=== PATIENT | female | born 1965 | race Caucasian/White ===

== ENCOUNTER 2016-08-27 20:38 | Emergency (ER) | payer MEDICARE ==
[2016-08-27 20:57] VITALS: BP 139/72
[2016-08-27] MEDS ORDERED: Ciprofloxacin TAB* 500 MG PO ONE (21:20)
--- NOTE | 2016-08-27 21:29 | UC ---
Ear Complaint HPI - HPI Summary HPI Summary: saw her doctor yesterday for a very painful left ear. Dx external otitis, Rx topical drops. She put a few doses in, and today noted gradually worsening pain in ear, swelling of left jaw area and under the jaw. Very tender to touch. No ear drainage. No fever. Hurts a bit to swallow, when the swollen area under the left jaw crump. No sore throat. No diabetes - History of Current Complaint Chief Complaint: UCGeneralIllness Stated Complaint: LEFT NECK,EAR SWOLLEN Time Seen by Provider: 08/27/16 21:08 Hx Obtained From: Patient Onset/Duration: Gradual Onset, Lasting Days - 4 Severity Initially: Mild Severity Currently: Moderate Aggravating Factors: Nothing Alleviating Factors: Heat Associated Signs/Symptoms: Positive: Swelling @ - left jaw, under left jaw. Negative: Discharge, Hearing Loss, Foreign Body Sensation, Trauma to Ear - Allergies/Home Medications Allergies/Adverse Reactions: Allergies Allergy/AdvReac Type Severity Reaction Status Date / Time Codeine Allergy Itching Verified 08/27/16 20:57 Home Medications: Home Medications Iipripmb-Iodrmycpa-By (Otic) [Cortisporin [id number]] 5 drop TID 08/27/16 [ History Confirmed 08/27/16] Omeprazole CAP* [Prilosec CAP* 20 MG] 20 mg PO DAILY 08/27/16 [History Confirmed 08/27/16] Propranolol TAB* [Inderal TAB*] 10 mg PO BID 08/27/16 [History Confirmed ] Tramadol ER(NF) [Ultram ER(NF)] 200 mg PO BEDTIME 08/27/16 [History Confirmed ] PMH/Surg Hx/FS Hx/Imm Hx Endocrine History Of: Denies: Diabetes, Thyroid Disease Cardiovascular History Of: Reports: Hypertension Denies: Pacemaker/ICD, Myocardial Infarction, Congestive Heart Failure, Deep Vein Thrombosis Respiratory History Of: Denies: COPD, Asthma, Pneumonia, Pulmonary Embolism GI/ History Of: Denies: Ulcer, Gastrointestinal Bleed, Gall Bladder Disease, Kidney Stones, Renal Disease, Urosepsis Neurological History Of: Denies: TIA, Dementia, Seizures, Migraine Psychological History Of: Denies: Anxiety, Depression, Bipolar Disorder, Schizophrenia Cancer History Of: Denies: Lung Cancer Other History Of: Negative For: Anticoagulant Therapy - Surgical History Surgical History: Yes Surgery Procedure, Year, and Place: TUBAL LIGATION 1991, GALLBLADDER 2004, BREAST REDUCTION 2000, 1997 [facility] - Family History Known Family History: Negative: None, Unknown, Cardiac Disease, Hypertension, Diabetes, Renal Disease, Respiratory Disease, Seizure Disorder, Blood Disorder, Other - Social History Occupation: Employed Full-time Lives: With Family Alcohol Use: Rare Substance Use Type: None Smoking Status (MU): Never Smoked Tobacco - Immunization History Most Recent Influenza Vaccination: none Review of Systems Constitutional: Negative Skin: Negative Eyes: Negative ENT: Ear Ache, Other - pain and swelling of left jaw area Respiratory: Negative Cardiovascular: Negative Gastrointestinal: Negative Genitourinary: Negative Motor: Negative Neurovascular: Negative Musculoskeletal: Negative Neurological: Negative Psychological: Negative All Other Systems Reviewed And Are Negative: Yes Physical Exam Triage Information Reviewed: Yes Appearance: Well-Appearing, No Pain Distress, Well-Nourished Vital Signs: Initial Vital Signs Temp 98.4 F 08/27/16 20:49 Pulse 95 08/27/16 20:49 Resp 17 08/27/16 20:49 BP 139/72 08/27/16 20:49 Pulse Ox 98 08/27/16 20:49 Vital Signs Reviewed: Yes Eye Exam: Normal ENT: Positive: Pharynx normal, Other: - left TM is hard to see due to canal swelling. NO drainage in canal. Very tender to push on tragus or surrounding cartilage. Large left submandib node, tender. No facial redness. I can't really appreciate any swelling of left cheek and jaw, but she says it is noticeable and people at work commented.. Negative: Pharyngeal erythema, Nasal drainage, Tonsillar swelling, Tonsillar exudate, Trismus, Muffled/hoarse voice Ear Complaint Course/Dx - Differential Dx/Diagnosis Differential Diagnosis/HQI/PQRI: Otitis Externa, Otitis Media Provider Diagnoses: left otitis externa; adenitis Discharge - Discharge Plan Condition: Stable Disposition: HOME Prescriptions: Ciprofloxacin HCl [Cipro] 500 mg PO BID #20 tab Patient Education Materials: Otitis Externa (ED), Adenitis (ED) Referrals: Torsten Aguirre MD [Primary Care Provider] -
== END 2016-08-27 21:24 | disposition home or self-care (01) ==
LOC: UCCORT 20:38
DX: H60.92 Unspecified otitis externa, left ear (principal); I88.9 Nonspecific lymphadenitis, unspecified
CPT/HCPCS: 99212; A9270-GY; G0463

== ENCOUNTER 2016-09-09 11:07 | Emergency (ER) | payer MEDICARE ==
[2016-09-09 11:32] VITALS: BP 156/80
--- NOTE | 2016-09-09 11:48 | UC ---
Hand/Wrist HPI - HPI Summary HPI Summary: Patient hit hand on a pipe, no pain, or loss of ROM. a few minutes later she noticed bruising about the middle MCP joint. now large hematoma. ROM limited due to the swelling. no other pain noted. - History Of Current Complaint Chief Complaint: UCUpperExtremity Stated Complaint: HAND INJURY Time Seen by Provider: 09/09/16 11:34 Hx Obtained From: Patient ?: No Onset/Duration: Sudden Onset, Lasting Hours Severity Initially: Mild Severity Currently: Moderate Pain Intensity: 5 Pain Scale Used: 0-10 Numeric Character Of Pain: Aching, Stiffness Aggravating Factor(s): Movement Alleviating: Ice Associated Signs And Symptoms: Positive: Swelling, Bruising - Risk Factors Compartment Syndrome Risk Factors: Pain - Allergies/Home Medications Allergies/Adverse Reactions: Allergies Allergy/AdvReac Type Severity Reaction Status Date / Time Ciprofloxacin Allergy Severe GI Upset Verified 09/09/16 11:24 Codeine Allergy Itching Verified 09/09/16 11:24 PMH/Surg Hx/FS Hx/Imm Hx Previously Healthy: Yes Endocrine History Of: Denies: Diabetes, Thyroid Disease Cardiovascular History Of: Reports: Hypertension Denies: Pacemaker/ICD, Myocardial Infarction, Congestive Heart Failure, Deep Vein Thrombosis Respiratory History Of: Denies: COPD, Asthma, Pneumonia, Pulmonary Embolism GI/ History Of: Denies: Ulcer, Gastrointestinal Bleed, Gall Bladder Disease, Kidney Stones, Renal Disease, Urosepsis Neurological History Of: Denies: TIA, Dementia, Seizures, Migraine Psychological History Of: Denies: Anxiety, Depression, Bipolar Disorder, Schizophrenia Cancer History Of: Denies: Lung Cancer Other History Of: Negative For: Anticoagulant Therapy - Surgical History Surgical History: Yes Surgery Procedure, Year, and Place: TUBAL LIGATION 1991, GALLBLADDER 2004, BREAST REDUCTION 2000, 1997 [place]. Tarsal tunnel - Family History Known Family History: Negative: None, Unknown, Cardiac Disease, Hypertension, Diabetes, Renal Disease, Respiratory Disease, Seizure Disorder, Blood Disorder, Other - Social History Alcohol Use: Rare Substance Use Type: None Smoking Status (MU): Never Smoked Tobacco - Immunization History Most Recent Influenza Vaccination: None Most Recent Tetanus Shot: Unknown Review of Systems Constitutional: Negative Skin: Bruising, Other - selling in left hand Eyes: Negative ENT: Negative Respiratory: Negative Cardiovascular: Negative Gastrointestinal: Negative Genitourinary: Negative Motor: Negative Neurovascular: Negative Musculoskeletal: Negative Neurological: Negative Psychological: Negative All Other Systems Reviewed And Are Negative: Yes Physical Exam Triage Information Reviewed: Yes Appearance: Well-Appearing, Well-Nourished, Pain Distress Vital Signs: Initial Vital Signs Temp 98.9 F 09/09/16 11:26 Pulse 89 09/09/16 11:26 Resp 18 09/09/16 11:26 BP 156/80 09/09/16 11:26 Pulse Ox 99 09/09/16 11:26 Vital Signs Reviewed: Yes Eye Exam: Normal Eyes: Positive: Conjunctiva Clear ENT Exam: Normal ENT: Positive: Hearing grossly normal, Pharynx normal, TMs normal Dental Exam: Normal Neck exam: Normal Neck: Positive: Supple, Nontender, No Lymphadenopathy Respiratory Exam: Normal Respiratory: Positive: Chest non-tender, Lungs clear, Normal breath sounds Cardiovascular Exam: Normal Cardiovascular: Positive: RRR, No Murmur, Pulses Normal Abdominal Exam: Normal Abdomen Description: Positive: Nontender, No Organomegaly, Soft Bowel Sounds: Positive: Present Musculoskeletal: Positive: Strength Limited @, ROM Limited @, Edema @ - in left h and, Other: - full sensation in all fingers, peripheral pulses normal Neurological Exam: Normal Neurological: Positive: Alert, Muscle Tone Normal Psychological Exam: Normal Skin: Positive: Other - large hematoma over left hand Hand/Wrist Course/Dx - Course Course Of Treatment: hx obtained, exam performed, patient does not feel xray needed. in agreement, she had full ROM and no pain until sweeling increased. Francesco and Ice applied, sling provided to keep hand elevated. - Differential Dx/Diagnosis Differential Diagnosis/HQI/PQRI: Contusion, Dislocation, Infection, Sprain, Strain, Tendonitis Provider Diagnoses: hematoma on left hand Discharge - Discharge Plan Condition: Stable Disposition: HOME Patient Education Materials: Hematoma (ED) Additional Instructions: Continue to elevate hand, ice frequently for the next 24- 48 hours. follow up if you develop any numbness or tingling or if your fingers begin to get cold while not icing your hand
== END 2016-09-09 11:55 | disposition home or self-care (01) ==
LOC: UCEAST 11:07
DX: S60.222A Contusion of left hand, initial encounter (principal); W22.8XXA Striking against or struck by other objects, initial encounter; Y93.9 Activity, unspecified; Y92.9 Unspecified place or not applicable; Z90.49 Acquired absence of other specified parts of digestive tract; Z88.1 Allergy status to other antibiotic agents; Z88.5 Allergy status to narcotic agent
CPT/HCPCS: 99212; G0463

== ENCOUNTER 2016-09-26 18:31 | Emergency (ER) | payer MEDICARE ==
--- NOTE | 2016-09-26 20:10 | RAD ---
INDICATION: Cough and fever. COMPARISON: Comparison is made with a prior chest x-ray study from August 16, 2015. TECHNIQUE: Dual-energy PA and lateral views of the chest were obtained. FINDINGS: The heart is within normal limits in size. Mediastinal and hilar contours appear within normal limits. The lungs are clear. No pleural effusion is seen. There is flattening of the diaphragms suggestive of chronic obstructive pulmonary disease. IMPRESSION: FINDINGS SUGGESTIVE OF COPD, NO EVIDENCE FOR ACUTE FINDING.
[2016-09-26] MEDS ORDERED: Oseltamivir CAP* 75 MG PO ONE (20:23)
--- NOTE | 2016-09-26 20:23 | UC ---
Respiratory Complaint HPI - HPI Summary HPI Summary: Pt went to primary MD today and was dx with Acute Bronchitis. She was prescribed an inhaler, nasal spray, and told to use a netti pot. Pt states since her visit today her throat and ears are hurting. Pt states she is prone to pneumonia. Sx started yesterday - suddenly felt like she got hit by a truck. Did not get flus hot this year - gets sick from it she reports. - History of Current Complaint Chief Complaint: UCGeneralIllness Stated Complaint: RUNNY NOSE/COUGH/CHEST CONGESTION - Allergies/Home Medications Allergies/Adverse Reactions: Allergies Allergy/AdvReac Type Severity Reaction Status Date / Time Ciprofloxacin Allergy Severe GI Upset Verified 09/09/16 11:24 Codeine Allergy Itching Verified 09/09/16 11:24 Home Medications: Home Medications Cholecalciferol [Vitamin D] 5,000 unit PO DAILY 09/26/16 [History Confirmed ] PMH/Surg Hx/FS Hx/Imm Hx Previously Healthy: Yes Endocrine History Of: Denies: Diabetes, Thyroid Disease Cardiovascular History Of: Reports: Hypertension Denies: Pacemaker/ICD, Myocardial Infarction, Congestive Heart Failure, Deep Vein Thrombosis Respiratory History Of: Reports: Bronchitis Denies: COPD, Asthma, Pneumonia, Pulmonary Embolism GI/ History Of: Denies: Ulcer, Gastrointestinal Bleed, Gall Bladder Disease, Kidney Stones, Renal Disease, Urosepsis Neurological History Of: Denies: TIA, Dementia, Seizures, Migraine Psychological History Of: Denies: Anxiety, Depression, Bipolar Disorder, Schizophrenia Cancer History Of: Denies: Lung Cancer Other History Of: Negative For: Anticoagulant Therapy - Surgical History Surgical History: Yes Surgery Procedure, Year, and Place: TUBAL LIGATION 1991, GALLBLADDER 2004, BREAST REDUCTION 2000, 1997 [place]. Tarsal tunnel - Family History Known Family History: Negative: None, Unknown, Cardiac Disease, Hypertension, Diabetes, Renal Disease, Respiratory Disease, Seizure Disorder, Blood Disorder, Other - Social History Alcohol Use: Rare Substance Use Type: None Smoking Status (MU): Never Smoked Tobacco - Immunization History Most Recent Influenza Vaccination: None Most Recent Tetanus Shot: Unknown Review of Systems Constitutional: Fever, Chills, Fatigue Skin: Negative Eyes: Negative ENT: Sore Throat Respiratory: Cough Cardiovascular: Negative Gastrointestinal: Negative Genitourinary: Negative Motor: Negative Neurovascular: Negative Musculoskeletal: Negative Neurological: Negative Psychological: Negative All Other Systems Reviewed And Are Negative: Yes Physical Exam Triage Information Reviewed: Yes Appearance: Well-Nourished, Ill-Appearing Vital Signs: Initial Vital Signs Temp 101.4 F 09/26/16 19:01 Pulse 104 09/26/16 19:01 Resp 24 09/26/16 19:01 BP 137/64 09/26/16 19:01 Pulse Ox 97 09/26/16 19:01 Vital Signs Reviewed: Yes Eye Exam: Normal ENT: Positive: Hearing grossly normal, Pharyngeal erythema, TMs normal. Negative: TM bulging, Tonsillar swelling, Tonsillar exudate Neck exam: Normal Neck: Positive: Supple, Nontender, No Lymphadenopathy Respiratory: Positive: Lungs clear, Normal breath sounds, No respiratory distress, No accessory muscle use Cardiovascular Exam: Normal Cardiovascular: Positive: RRR, No Murmur, Pulses Normal, Brisk Capillary Refill Abdominal Exam: Normal Abdomen Description: Positive: Nontender, Soft Musculoskeletal Exam: Normal Neurological Exam: Normal Psychological Exam: Normal Skin Exam: Normal UC Diagnostic Evaluation - Laboratory O2 Sat by Pulse Oximetry: 97 Respiratory Course/Dx - Course Course Of Treatment: CXR - FINDINGS SUGGESTIVE OF COPD, NO EVIDENCE FOR ACUTE FINDING. Rapid strep neg. Rapid flu positive for B. - Differential Dx/Diagnosis Differential Diagnosis/HQI/PQRI: Bronchitis, Influenza, Other - pneumonia Provider Diagnoses: Influenza B Discharge - Discharge Plan Condition: Stable Disposition: HOME Prescriptions: Oseltamivir CAP* [Tamiflu CAP*] 75 mg PO BID #9 cap Patient Education Materials: Influenza (ED) Referrals: Vineet Seth DO [Primary Care Provider] - 4 Days Additional Instructions: We reviewed that your chest xray report that shows possible COPD and discussed that this is not confirmatory for this diagnosis. You should follow up with your primary care to have a breathing test. Make sure you get lots of fluids and rest, tylenol. You denied having any kidney disease and therefore it is not contraindicated to have tamiflu. Remember that this is very contagious for several days after your symptoms resolve and should be cautious to avoid contact with people. You were given the 1st dose of tamiflu here and 650mgs of tylenol.
[2016-09-26] MEDS ORDERED: Acetaminophen TAB* 325 MG PO ONE (20:38)
[2016-09-26 20:39] VITALS: BP 140/59
== END 2016-09-26 20:45 | disposition home or self-care (01) ==
LOC: UCCORT 18:31
DX: J11.1 Influenza due to unidentified influenza virus with other respiratory manifestations (principal); Z88.1 Allergy status to other antibiotic agents; Z88.5 Allergy status to narcotic agent; Z90.49 Acquired absence of other specified parts of digestive tract
CPT/HCPCS: 71020; 87502; 87651; 99212; A9270-GY; G0463

== ENCOUNTER 2017-11-06 14:27 | Observation (INO) | payer MEDICARE ==
--- OUTSIDE RECORDS SUMMARY | 2017-11-06 15:01 | XMS REPORT ---
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 09/23/2007 BP Systolic 136 mmHg BP Diastolic 84 mmHg Body Temperature 98.2 F Height 63.6 inches 5'3.60" Weight 207.00 lb BMI (Body Mass Index) 36.0 kg/m2 08/28/2007 BP Systolic 120 mmHg BP Diastolic 86 mmHg Body Temperature 98.1 F Height 63.6 inches 5'3.60" Weight 208.00 lb BMI (Body Mass Index) 36.1 kg/m2 Last Menstrual Period 0 06/26/2007 BP Systolic 130 mmHg BP Diastolic 84 mmHg Height 63.6 inches 5'3.60" Weight 213.50 lb BMI (Body Mass Index) 37.1 kg/m2 03/31/2007 BP Systolic 130 mmHg BP Diastolic 78 mmHg Body Temperature 98.1 F Height 63.6 inches 5'3.60" Weight 205.00 lb BMI (Body Mass Index) 35.6 kg/m2 11/24/2006 BP Systolic 120 mmHg BP Diastolic 70 mmHg Heart Rate 76 /min reg Respiratory Rate 16 /min not laboured Height 63.6 inches 5'3.60" Weight 200.00 lb BMI (Body Mass Index) 34.8 kg/m2 Last Menstrual Period [id number] Had some bloody d/c this am, not in pm. 02/17/2006 BP Systolic 110 mmHg BP Diastolic 70 mmHg Height 63.6 inches 5'3.60" Weight 204.00 lb BMI (Body Mass Index) 35.5 kg/m2 11/29/2005 BP Systolic 124 mmHg BP Diastolic 90 mmHg Body Temperature 98.0 F Height 63.6 inches 5'3.60" Weight 208.50 lb BMI (Body Mass Index) 36.2 kg/m2 11/06/2005 BP Systolic 130 mmHg BP Diastolic 90 mmHg Height 63.6 inches 5'3.60" Weight 203.00 lb BMI (Body Mass Index) 35.3 kg/m2 10/07/2005 BP Systolic 118 mmHg BP Diastolic 94 mmHg Height 63.6 inches 5'3.60" 10/03/2005 BP Systolic 120 mmHg BP Diastolic 90 mmHg Body Temperature 97.8 F Height 63.6 inches 5'3.60" Weight 202.00 lb BMI (Body Mass Index) 35.1 kg/m2 08/27/2005 Body Temperature 97.8 F Height 63.6 inches 5'3.60" Weight 210.00 lb BMI (Body Mass Index) 36.5 kg/m2 04/15/2005 BP Systolic 112 mmHg BP Diastolic 78 mmHg Height 63.6 inches 5'3.60" Weight 208.00 lb BMI (Body Mass Index) 36.1 kg/m2 01/10/2005 BP Systolic 120 mmHg BP Diastolic 82 mmHg Height 63.6 inches 5'3.60" Weight 205.00 lb BMI (Body Mass Index) 35.6 kg/m2 12/28/2003 BP Systolic 120 mmHg R Arm LG Cuff Sitting BP Diastolic 80 mmHg R Arm LG Cuff Sitting Height 63.6 inches 5'3.60" Weight 197.00 lb BMI (Body Mass Index) 34.2 kg/m2 07/28/2003 BP Systolic 120 mmHg R Arm BP Diastolic 80 mmHg R Arm Results Test Date Test Result H/L Range Note Laboratory test finding 08/04/2017 Vitamin B12 295 pg/mL 180-914 1 Erythrocyte Sed Rate 25 mm/Hr 0-30 C Reactive Protein 13.15 mg/L High < 5.00 2 Comp Metabolic Panel 08/04/2017 Sodium 136 mmol/L 133-145 Potassium 4.4 mmol/L 3.5-5.0 Chloride 98 mmol/L Low 101-111 Co2 Carbon Dioxide 27 mmol/L 22-32 Anion Gap 11 mmol/L 2-11 Glucose 95 mg/dL 70-100 Blood Urea Nitrogen 19 mg/dL 6-24 Creatinine 0.52 mg/dL 0.51-0.95 BUN/Creatinine Ratio 36.5 High 8-20 Calcium 10.1 mg/dL 8.6-10.3 Total Protein 7.4 g/dL 6.4-8.9 Albumin 4.4 g/dL 3.2-5.2 Globulin 3.0 g/dL 2-4 Albumin/Globulin Ratio 1.5 1-3 Total Bilirubin 0.50 mg/dL 0.2-1.0 Alkaline Phosphatase 102 U/L 34-104 Alt 36 U/L 7-52 Ast 44 U/L High 13-39 Egfr Non- 123.4 >60 Egfr 158.6 >60 3 Lipid Profile (Trig/Chol/HDL) 07/02/2017 Triglycerides 296 mg/dL 4 Cholesterol 178 mg/dL 5 HDL Cholesterol 47.0 mg/dL 6 LDL Cholesterol 72 mg/dL 7 Comp Metabolic Panel 07/02/2017 Sodium 140 mmol/L 133-145 Potassium 4.2 mmol/L 3.5-5.0 Chloride 103 mmol/L 101-111 Co2 Carbon Dioxide 28 mmol/L 22-32 Anion Gap 9 mmol/L 2-11 Glucose 101 mg/dL High 70-100 Blood Urea Nitrogen 15 mg/dL 6-24 Creatinine 0.45 mg/dL Low 0.51-0.95 BUN/Creatinine Ratio 33.3 High 8-20 Calcium 9.8 mg/dL 8.6-10.3 Total Protein 7.2 g/dL 6.4-8.9 Albumin 4.4 g/dL 3.2-5.2 Globulin 2.8 g/dL 2-4 Albumin/Globulin Ratio 1.6 1-3 Total Bilirubin 0.60 mg/dL 0.2-1.0 Alkaline Phosphatase 112 U/L High 34-104 Alt 34 U/L 7-52 Ast 45 U/L High 13-39 Egfr Non- 146.3 >60 Egfr 188.2 >60 8 Laboratory test finding 07/02/2017 Creatine Kinase(CK) 30 U/L 10-223 9 Connective Tissue Panel 07/02/2017 Anti-Nuclear Antibody 0.4 U 10 Cyclic Citrullinated Peptide <15.6 U 11 Interpretation See Comment 12 Laboratory test finding 07/02/2017 Erythrocyte Sed Rate 22 mm/Hr 0-30 13 C Reactive Protein 12.27 mg/L High < 5.00 14 CBC 05/18/2017 White Blood Count 6.8 K/uL 3.1-10.7 15 Red Blood Count 4.19 M/uL 3.90-5.40 15 Hemoglobin 14.0 gm/dL 11.6-15.8 15 Hematocrit 40.7 % 36.0-46.1 15 Mean Cell Volume 97.1 fl 80.9-99.0 15 Mean Corpuscular HGB 33.4 pg High 25.9-32.7 15 Mean Corpuscular HGB Conc 34.4 g/dL High 30.8-34.3 15 Platelet Count 232 K/uL 150-400 15 Red Cell Distri Width %CV 12.7 % 11.7-14.4 15 Mean Platelet Volume 10.4 fL 8.9-12.4 15 Basic Metabolic Panel 05/18/2017 Glucose 102 mg/dL 74-106 15 BUN 17 mg/dL 7-18 15 Creatinine 0.5 mg/dL Low 0.6-1.3 15 Glom Filtration Rate, Estimate >60 mL/min >60 15 If >60 mL/min >60 15, 16 BUN/Creat 34.0 ratio 15 Sodium 140 mmol/L 136-145 15 Potassium 4.0 mmol/L 3.5-5.1 15 Chloride 103 mmol/L 98-107 15 Carbon Dioxide 28 mmol/L 21-32 15 Anion Gap 9 mEq/L 8-16 15 Calcium 9.2 mg/dL 8.5-10.1 15 LDL Cholesterol Profile 05/18/2017 Cholesterol 220 mg/dL High <200 15 , 17 Triglycerides 403 mg/dL High <150 15, 18 HDL Cholesterol 43 mg/dL >40 15, 19 LDL-Cholesterol TNP mg/dL < 100 15, 20 Laboratory test 05/18/2017 Troponin-I < 0.015 ng/mL 15, 21 finding Laboratory test 05/17/2017 Troponin-I < 0.015 ng/mL 15, 22 finding Laboratory test 05/17/2017 Lipase 125 U/L 56-289 23 finding Lyme Western Blot 03/10/2017 Lyme Disease IgG Ab Negative Negative WB Lyme Disease IgG Bands Present p41, p23, kDa Lyme Disease IgM Ab WB Negative Negative Lyme Disease IgM Bands Present No bands detecte <SEE NOTE> kDa 24 Lyme Disease Interpretation See Comment 25 CBC Auto Diff 03/06/2017 White Blood Count 9.8 10^3/uL 3.5-10.8 Red Blood Count 4.21 10^6/uL 4.0-5.4 Hemoglobin 13.9 g/dL 12.0-16.0 Hematocrit 41 % 35-47 Mean Corpuscular Volume 96 fL 80-97 Mean Corpuscular Hemoglobin 33 pg High 27-31 Mean Corpuscular HGB Conc 34 g/dL 31-36 Red Cell Distribution Width 13 % 10.5-15 Platelet Count 275 10^3/uL 150-450 Mean Platelet Volume 9 um3 7.4-10.4 Abs Neutrophils 6.4 10^3/uL 1.5-7.7 Abs Lymphocytes 2.6 10^3/uL 1.0-4.8 Abs Monocytes 0.5 10^3/uL 0-0.8 Abs Eosinophils 0.2 10^3/uL 0-0.6 Abs Basophils 0.1 10^3/uL 0-0.2 Abs Nucleated RBC 0.01 10^3/uL Granulocyte % 65.1 % 38-83 Lymphocyte % 26.9 % 25-47 Monocyte % 5.3 % 1-9 Eosinophil % 1.7 % 0-6 Basophil % 1.0 % 0-2 Nucleated Red Blood Cells % 0.1 Comp Metabolic Panel 03/06/2017 Sodium 136 mmol/L 133-145 Potassium 4.4 mmol/L 3.5-5.0 Chloride 101 mmol/L 101-111 Co2 Carbon Dioxide 24 mmol/L 22-32 Anion Gap 11 mmol/L 2-11 Glucose 113 mg/dL High 70-100 Blood Urea Nitrogen 22 mg/dL 6-24 Creatinine 0.87 mg/dL 0.51-0.95 BUN/Creatinine Ratio 25.3 High 8-20 Calcium 10.1 mg/dL 8.6-10.3 Total Protein 7.4 g/dL 6.4-8.9 Albumin 4.8 g/dL 3.2-5.2 Globulin 2.6 g/dL 2-4 Albumin/Globulin Ratio 1.8 1-3 Total Bilirubin 0.50 mg/dL 0.2-1.0 Alkaline Phosphatase 99 U/L 34-104 Alt 42 U/L 7-52 Ast 44 U/L High 13-39 Egfr Non- 68.4 >60 Egfr 87.9 >60 26 Laboratory test finding 03/06/2017 Erythrocyte Sed Rate 29 mm/Hr 0-30 CBC Auto Diff 12/24/2016 White Blood Count 10.9 10^3/uL High 3.5-10.8 Red Blood Count 4.38 10^6/uL 4.0-5.4 Hemoglobin 14.3 g/dL 12.0-16.0 Hematocrit 42 % 35-47 Mean Corpuscular Volume 95 fL 80-97 Mean Corpuscular Hemoglobin 33 pg High 27-31 Mean Corpuscular HGB Conc 34 g/dL 31-36 Red Cell Distribution Width 13 % 10.5-15 Platelet Count 263 10^3/uL 150-450 Mean Platelet Volume 9 um3 7.4-10.4 Abs Neutrophils 6.6 10^3/uL 1.5-7.7 Abs Lymphocytes 3.3 10^3/uL 1.0-4.8 Abs Monocytes 0.6 10^3/uL 0-0.8 Abs Eosinophils 0.2 10^3/uL 0-0.6 Abs Basophils 0.1 10^3/uL 0-0.2 Abs Nucleated RBC 0.02 10^3/uL Granulocyte % 60.4 % 38-83 Lymphocyte % 30.6 % 25-47 Monocyte % 5.9 % 1-9 Eosinophil % 1.8 % 0-6 Basophil % 1.3 % 0-2 Nucleated Red Blood Cells % 0.1 Laboratory test finding 12/24/2016 TSH (Thyroid Stim Horm) 2.75 mcIU/mL 0.34-5.60 Comp Metabolic Panel 12/24/2016 Sodium 137 mmol/L 133-145 Potassium 4.2 mmol/L 3.5-5.0 Chloride 103 mmol/L 101-111 Co2 Carbon Dioxide 25 mmol/L 22-32 Anion Gap 9 mmol/L 2-11 Glucose 119 mg/dL High 70-100 Blood Urea Nitrogen 20 mg/dL 6-24 Creatinine 0.58 mg/dL 0.51-0.95 BUN/Creatinine Ratio 34.5 High 8-20 Calcium 9.8 mg/dL 8.6-10.3 Total Protein 7.3 g/dL 6.4-8.9 Albumin 4.6 g/dL 3.2-5.2 Globulin 2.7 g/dL 2-4 Albumin/Globulin Ratio 1.7 1-3 Total Bilirubin 0.40 mg/dL 0.2-1.0 Alkaline Phosphatase 105 U/L High 34-104 Alt 33 U/L 7-52 Ast 35 U/L 13-39 Egfr Non- 109.2 >60 Egfr 140.4 >60 27 Laboratory test finding 12/24/2016 Erythrocyte Sed Rate 30 mm/Hr 0-30 T3 Free 4.30 pg/mL High 2.5-3.9 Free T4 (Free Thyroxine) 0.71 ng/dL 0.61-1.12 Laboratory test 12/12/2016 Cytology Non-Medical Physiologist SEE RESULT 28 finding BELOW Laboratory test 10/08/2016 Thyroid Peroxidase 8 IU/mL 0-34 29, 30 finding Antibodies Lipid Profile 10/08/2016 Cholesterol 231 mg/dL High <200 31, 32 (Trig/Chol/HDL) Triglycerides 483 mg/dL High <150 31, 33 HDL Cholesterol 45 mg/dL >40 31, 34 LDL-Cholesterol TNP mg/dL < 100 31, 35 Comp Metabolic Panel 10/08/2016 Glucose 97 mg/dL 74-106 31 BUN 15 mg/dL 7-18 31 Creatinine 0.5 mg/dL Low 0.6-1.3 31 Glom Filtration Rate, Estimate >60 mL/min >60 31 If >60 mL/min >60 31, 36 BUN/Creat 30.0 ratio 31 Sodium 142 mmol/L 136-145 31 Potassium 4.1 mmol/L 3.5-5.1 31 Chloride 106 mmol/L 98-107 31 Carbon Dioxide 26 mmol/L 21-32 31 Anion Gap 10 mEq/L 8-16 31 Calcium 9.1 mg/dL 8.5-10.1 31 Total Protein 8.1 g/dL 6.4-8.2 31 Albumin 3.9 g/dL 3.4-5.0 31 Globulin 4.2 g/dL 1.9-4.3 31 Alb/Glob 0.9 ratio 31 Bilirubin,Total 0.4 mg/dL 0.2-1.0 31 Sgot/Ast 51 U/L High 15-37 31 SGPT/Alt 57 U/L 12-78 31 Alkaline Phosphatase 133 U/L High 45-117 31 Laboratory test 10/08/2016 Vitamin D,25-Hydroxy 41.2 ng/mL 30.0-100.0 31 , 37 finding CBC Auto Diff 10/08/2016 White Blood Count 8.5 K/uL 3.1-10.7 31 Red Blood Count 4.33 M/uL 3.90-5.40 31 Hemoglobin 14.3 gm/dL 11.6-15.8 31 Hematocrit 41.5 % 36.0-46.1 31 Mean Cell Volume 95.8 fl 80.9-99.0 31 Mean Corpuscular HGB 33.0 pg High 25.9-32.7 31 Mean Corpuscular HGB Conc 34.5 g/dL High 30.8-34.3 31 Platelet Count 288 K/uL 150-400 31 Red Cell Distri Width SD 44.0 fl 3-47 31 Red Cell Distri Width %CV 13.0 % 11.7-14.4 31 Mean Platelet Volume 10.8 fL 8.9-12.4 31, 38 Neut# 5.32 K/uL 1.8-7.0 31 Lymph # 2.23 K/uL 1.0-4.0 31 [place] # 0.66 K/uL 0.3-0.9 31 Eos # 0.17 K/uL 0.0-0.5 31 Baso # 0.11 K/uL High 0.0-0.1 31 Laboratory test finding 10/08/2016 Thyroid Stim Hormone 2.76 uIU/mL 0.30- 4.20 31 Laboratory test finding 10/08/2016 Slide Review DIFF ORDERED 31 Differential-WBC Confirm 10/08/2016 Total Cells Counted 100 #CELLS 31 Myelocyte% 4 % High -0 31 Band% 3 % 0-8 31 Neutrophils% 56 % 33-73 31 Lymph% 28 % 20-42 31 Atypical Lymph% 3 % 0-7 31 Monocyte% 2 % 0-10 31 Eosinophil% 2 % 0-5 31 Basophil% 2 % 0-2 31 Platelet Estimate NORMAL 31 RBC Morphology NORMAL 31 Thyroglobulin QT And 10/08/2016 Thyroglobulin Antibody < 1.0 0.0-0.9 39, 40 Thyro AB IU/mL Thyroglobulin By Ida 170.3 ng/mL High 1.5-38.5 39, 41 Laboratory test finding 09/26/2016 Rapid Strep Molecular Negative Negative 42 Rapid Influenza A & B 09/26/2016 Influenza A Molecular NEGATIVE Negative 43 Molecular Influenza B Molecular POSITIVE Negative Comprehensive Metabolic Panel 09/22/2016 Glucose 116 mg/dL High 74-106 44 BUN 16 mg/dL 7-18 44 Creatinine 0.6 mg/dL 0.6-1.3 44 Glom Filtration Rate, Estimate >60 mL/min >60 44 If >60 mL/min >60 44, 45 BUN/Creat 26.6 ratio 44 Sodium 139 mmol/L 136-145 44 Potassium 4.0 mmol/L 3.5-5.1 44 Chloride 104 mmol/L 98-107 44 Carbon Dioxide 25 mmol/L 21-32 44 Anion Gap 10 mEq/L 8-16 44 Calcium 9.0 mg/dL 8.5-10.1 44 Total Protein 7.9 g/dL 6.4-8.2 44 Albumin 3.8 g/dL 3.4-5.0 44 Globulin 4.1 g/dL 1.9-4.3 44 Alb/Glob 0.9 ratio 44 Bilirubin,Total 0.3 mg/dL 0.2-1.0 44 Sgot/Ast 35 U/L 15-37 44 SGPT/Alt 48 U/L 12-78 44 Alkaline Phosphatase 115 U/L 45-117 44 Laboratory test finding 09/22/2016 Lipase 140 U/L 73-393 44 CK 37 U/L 26-192 44 Troponin-I < 0.015 ng/mL 44, 46 Differential-WBC Confirm 09/22/2016 Total Cells Counted 100 #CELLS 44 Band% 3 % 0-8 44 Neutrophils% 50 % 33-73 44 Lymph% 32 % 20-42 44 Atypical Lymph% 6 % 0-7 44 Monocyte% 5 % 0-10 44 Eosinophil% 2 % 0-5 44 Basophil% 2 % 0-2 44 Platelet Estimate NORMAL 44 Anisocytosis 1+ 44 Macrocytosis 0-1+ 44 Differential Comment LRG PLTS SEEN 44 Laboratory test finding 09/22/2016 Slide Review DIFF ORDERED 44 CBS W/Automated Diff 09/22/2016 White Blood Count 7.5 K/uL 3.1-10.7 44 Red Blood Count 4.38 M/uL 3.90-5.40 44 Hemoglobin 13.9 gm/dL 11.6-15.8 44 Hematocrit 41.6 % 36.0-46.1 44 Mean Cell Volume 95.0 fl 80.9-99.0 44 Mean Corpuscular HGB 31.7 pg 25.9-32.7 44 Mean Corpuscular HGB Conc 33.4 g/dL 30.8-34.3 44 Platelet Count 270 K/uL 150-400 44 Red Cell Distri Width SD 43.0 fl 3-47 44 Red Cell Distri Width %CV 12.8 % 11.7-14.4 44 Mean Platelet Volume 10.6 fL 8.9-12.4 44, 47 Neut# 4.31 K/uL 1.8-7.0 44 Lymph # 2.44 K/uL 1.0-4.0 44 [place] # 0.53 K/uL 0.3-0.9 44 Eos # 0.17 K/uL 0.0-0.5 44 Baso # 0.05 K/uL 0.0-0.1 44 CBC Auto Diff 12/20/2015 White Blood Count 7.2 10^3/uL 3.5-10.8 Red Blood Count 4.13 10^6/uL 4.0-5.4 Hemoglobin 13.8 g/dL 12.0-16.0 Hematocrit 40 % 35-47 Mean Corpuscular Volume 97 fL 80-97 Mean Corpuscular Hemoglobin 33 pg High 27-31 Mean Corpuscular HGB Conc 35 g/dL 31-36 Red Cell Distribution Width 13 % 10.5-15 Platelet Count 235 10^3/uL 150-450 Mean Platelet Volume 9 um3 7.4-10.4 Abs Neutrophils 4.7 10^3/uL 1.5-7.7 Abs Lymphocytes 1.8 10^3/uL 1.0-4.8 Abs Monocytes 0.5 10^3/uL 0-0.8 Abs Eosinophils 0.1 10^3/uL 0-0.6 Abs Basophils 0.1 10^3/uL 0-0.2 Abs Nucleated RBC 0 10^3/uL Granulocyte % 65.1 % 38-83 Lymphocyte % 25.5 % 25-47 Monocyte % 6.8 % 1-9 Eosinophil % 1.5 % 0-6 Basophil % 1.1 % 0-2 Nucleated Red Blood Cells % 0 Comp Metabolic Panel 12/20/2015 Sodium 138 mmol/L 133-145 Potassium 4.2 mmol/L 3.5-5.0 Chloride 102 mmol/L 101-111 Co2 Carbon Dioxide 25 mmol/L 22-32 Anion Gap 11 mmol/L 2-11 Glucose 102 mg/dL High 70-100 Blood Urea Nitrogen 14 mg/dL 6-24 Creatinine 0.49 mg/dL Low 0.51-0.95 BUN/Creatinine Ratio 28.6 High 8-20 Calcium 9.7 mg/dL 8.6-10.3 Total Protein 7.5 g/dL 6.4-8.9 Albumin 4.6 g/dL 3.2-5.2 Globulin 2.9 g/dL 2-4 Albumin/Globulin Ratio 1.6 1-3 Total Bilirubin 0.50 mg/dL 0.2-1.0 Alkaline Phosphatase 119 U/L High 34-104 Alt 60 U/L High 7-52 Ast 94 U/L High 13-39 Egfr Non- 133.1 >60 Egfr 171.2 >60 48 Laboratory test finding 12/20/2015 Vitamin D Total 25(Oh) 38.5 ng/mL 30- 50 49 TSH (Thyroid Stim Horm) 3.96 ?IU/mL 0.34-5.60 50 Magnesium 2.1 mg/dL 1.9-2.7 51 Hemoglobin A1c (Glyco HGB) 5.4 % Less than 6.0 52 Lipid Profile (Trig/Chol/HDL) 12/20/2015 Triglycerides 355 mg/dL 53 Cholesterol 223 mg/dL 54 HDL Cholesterol 47.2 mg/dL 55 LDL Cholesterol 105 mg/dL 56 Laboratory test finding 12/01/2015 Cytology SEE RESULT BELOW 57 Human Papilloma Virus Rna Negative Negative 58 Laboratory test finding 08/16/2015 Point of Care Glucose 93 mg/dL 74-106 59 Laboratory test finding 08/16/2015 Troponin-I (TnI) 0.00 ng/mL <0.03 60 Laboratory test finding 08/16/2015 Point of Care Glucose 115 mg/dL High 74 -106 61 Basic Metabolic Panel 08/10/2015 Sodium 137 mmol/L 133-145 Potassium 4.2 mmol/L 3.5-5.0 Chloride 102 mmol/L 101-111 Co2 Carbon Dioxide 24 mmol/L 22-32 Anion Gap 11 mmol/L 2-11 Glucose 103 mg/dL High 70-100 Blood Urea Nitrogen 12 mg/dL 6-24 Creatinine 0.43 mg/dL Low 0.51-0.95 BUN/Creatinine Ratio 27.9 High 8-20 Calcium 9.8 mg/dL 8.6-10.3 Egfr Non- 154.8 >60 Egfr 199.1 >60 62 Basic Metabolic Panel 04/25/2015 Sodium 135 mmol/L 133-145 Potassium 4.2 mmol/L 3.5-5.0 Chloride 98 mmol/L Low 101-111 Co2 Carbon Dioxide 26 mmol/L 22-32 Anion Gap 11 mmol/L 2-11 Glucose 99 mg/dL 70-100 Blood Urea Nitrogen 13 mg/dL 6-24 Creatinine 0.47 mg/dL Low 0.51-0.95 BUN/Creatinine Ratio 27.7 High 8-20 Calcium 10.0 mg/dL 8.6-10.3 Egfr Non- 140.3 >60 Egfr 180.4 >60 63 CBC Auto Diff 09/09/2014 White Blood Count 7.5 10^3/uL 4.8-10.8 Red Blood Count 4.02 10^6/uL 4.0-5.4 Hemoglobin 13.5 g/dL 12.0-16.0 Hematocrit 39 % 35-47 Mean Corpuscular Volume 98 fL High 80-97 Mean Corpuscular Hemoglobin 34 pg High 27-31 Mean Corpuscular HGB Conc 34 g/dL 31-36 Red Cell Distribution Width 13 % 10.5-15 Platelet Count 241 10^3/uL 150-450 Mean Platelet Volume 9 um3 7.4-10.4 Abs Neutrophils 5.0 10^3/uL 1.5-7.7 Abs Lymphocytes 1.9 10^3/uL 1.0-4.8 Abs Monocytes 0.4 10^3/uL 0-0.8 Abs Eosinophils 0.1 10^3/uL 0-0.6 Abs Basophils 0.1 10^3/uL 0-0.2 Abs Nucleated RBC 0 10^3/uL Granulocyte % 66.4 % 38-83 Lymphocyte % 24.9 % Low 25-47 Monocyte % 6.0 % 1-9 Eosinophil % 1.8 % 0-6 Basophil % 0.9 % 0-2 Nucleated Red Blood Cells % 0.1 Comp Metabolic Panel 09/09/2014 Sodium 136 mmol/L 133-145 Potassium 4.3 mmol/L 3.5-5.0 Chloride 100 mmol/L Low 101-111 Co2 Carbon Dioxide 28 mmol/L 22-32 Anion Gap 8 mmol/L 2-11 Glucose 103 mg/dL High 70-100 Blood Urea Nitrogen 10 mg/dL 6-24 Creatinine 0.49 mg/dL Low 0.51-0.95 BUN/Creatinine Ratio 20.4 High 8-20 Calcium 9.8 mg/dL 8.6-10.3 Total Protein 7.5 g/dL 6.4-8.9 Albumin 4.5 g/dL 3.2-5.2 Globulin 3.0 g/dL 2-4 Albumin/Globulin Ratio 1.5 1-3 Total Bilirubin 0.50 mg/dL 0.2-1.0 Alkaline Phosphatase 124 U/L High 34-104 Alt 41 U/L 7-52 Ast 66 U/L High 13-39 Egfr Non- 133.7 >60 Egfr 171.9 >60 64 Lipid Profile (Trig/Chol/HDL) 09/09/2014 Triglycerides 295 mg/dL 65 Cholesterol 229 mg/dL 66 HDL Cholesterol 41.7 mg/dL 67 LDL Cholesterol 128 mg/dL 68 Laboratory test finding 09/09/2014 TSH (Thyroid 3.26 IU/mL 0.34-5.60 Stimulating Horm) Vitamin D, 25 Hydroxy 09/09/2014 25-Hydroxy Vitamin D2 <4.0 ng/mL 25-Hydroxy Vitamin D3 18 ng/mL 25-Hydroxy Vitamin D Total 18 ng/mL 69 Laboratory test finding 09/02/2014 Hemoglobin A1c 5.8 CBC Auto Diff 08/17/2013 White Blood Count 9.9 10^3/uL 4.8-10.8 Red Blood Count 4.16 10^6/uL 4.0-5.4 Hemoglobin 14.0 g/dL 12.0-16.0 Hematocrit 40 % 35-47 Mean Corpuscular Volume 96 fL 80-97 Mean Corpuscular Hemoglobin 34 pg High 27-31 Mean Corpuscular HGB Conc 35 g/dL 31-36 Red Cell Distribution Width 13 % 10.5-15 Platelet Count 282 10^3/uL 150-450 Mean Platelet Volume 9 um3 7.4-10.4 Abs Neutrophils 6.9 10^3/uL 1.5-7.7 Abs Lymphocytes 2.2 10^3/uL 1.0-4.8 Abs Monocytes 0.5 10^3/uL 0-0.8 Abs Eosinophils 0.2 10^3/uL 0-0.6 Abs Basophils 0.1 10^3/uL 0-0.2 Abs Nucleated RBC 0.01 10^3/uL Granulocyte % 69.9 % 38-83 Lymphocyte % 22.5 % Low 25-47 Monocyte % 5.2 % 1-9 Eosinophil % 1.5 % 0-6 Basophil % 0.9 % 0-2 Nucleated Red Blood Cells % 0.1 Comp Metabolic Panel 08/17/2013 Sodium 138 mmol/L 133-145 Potassium 4.0 mmol/L 3.5-5.0 Chloride 102 mmol/L 101-111 Co2 Carbon Dioxide 25.0 mmol/L 22-32 Anion Gap 11.0 mmol/L 2-11 Glucose 121 mg/dL High 70-100 Blood Urea Nitrogen 20 mg/dL 6-24 Creatinine 0.40 mg/dL Low 0.50-1.40 BUN/Creatinine Ratio 50.0 High 8-20 Calcium 10.0 mg/dL High 8.1-9.9 Total Protein 7.5 g/dL 6.2-8.1 Albumin 4.4 g/dL 3.6-5.4 Globulin 3.1 g/dL 2-4 Albumin/Globulin Ratio 1.4 1-3 Total Bilirubin 0.6 mg/dL 0.4-1.5 Alkaline Phosphatase 113 U/L High 30-110 Alt 86 U/L High 14-54 Ast 133 U/L High 12-42 Egfr Non- 169.7 >60 Egfr 218.2 >60 70 Basic Metabolic Panel 02/22/2013 Sodium 135 mmol/L 133-145 Potassium 3.9 mmol/L 3.5-5.0 Chloride 96 mmol/L Low 101-111 Co2 Carbon Dioxide 27.0 mmol/L 22-32 Anion Gap 12.0 mmol/L High 2-11 Glucose 108 mg/dL High 70-100 Blood Urea Nitrogen 12 mg/dL 6-24 Creatinine 0.50 mg/dL 0.50-1.40 BUN/Creatinine Ratio 24.0 High 8-20 Calcium 9.7 mg/dL 8.1-9.9 Egfr Non- 131.7 >60 Egfr 169.4 >60 71 Basic Metabolic Panel 02/01/2013 Sodium 138 mmol/L 133-145 Potassium 4.3 mmol/L 3.5-5.0 Chloride 103 mmol/L 101-111 Co2 Carbon Dioxide 26.0 mmol/L 22-32 Anion Gap 9.0 mmol/L 2-11 Glucose 99 mg/dL 70-100 Blood Urea Nitrogen 12 mg/dL 6-24 Creatinine 0.50 mg/dL 0.50-1.40 BUN/Creatinine Ratio 24.0 High 8-20 Calcium 9.6 mg/dL 8.1-9.9 Egfr Non- 131.7 >60 Egfr 169.4 >60 72 Arthritis Panel 05/20/2012 Erythrocyte Sed Rate 36 MM/HR High 0-14 Uric Acid 5.8 mg/dL 2.6-7.2 Anti Nuclear Antibody Screen Negative Negative Rheumatoid Factor <15 IU/mL <15 73 CBC Auto Diff 02/07/2012 White Blood Count 8.0 CUMM 4.8-10.8 Red Cell Count 3.98 CUMM Low 4.2-5.4 Hemoglobin 13.8 g/dL 12.0-16.0 Hematocrit 38 % 35-47 Mean Corpuscular Volume 96 um3 79-97 Mean Corpuscular Hemoglob 35 pg High 27-31 Mean Corpuscular HGB Cone 36 g/dL 32-36 Redcell Distribution WDTH 13 % 10.5-15 Platelet Count 249 CUMM 150-450 Mean Platelet Volume 8.8 um3 7.4-10.4 Gran % 69.2 % 38-83 Lymph % 22.4 % 20-45 Mononuclear % 6.1 % 1-9 Eosinophil % 1.4 % 0-6 Basophil % 0.9 % 0-2 Abs Lymphs 1.8 1.0-4.8 Abs Mononuclear 0.5 0-0.8 Absolute Neutrophil Count 5.5 1.5-7.7 Abs Eosinophils 0.1 0-0.6 Abs Basophils 0.1 0-0.2 Comp Metabolic Panel 02/07/2012 Sodium 136 mmol/L 135-145 Potassium 4.1 mmol/L 3.5-5.0 Chloride 103 mmol/L 101-111 Co2 (Carbon Dioxide) 25.0 mmol/L 22-32 Anion Gap 8.0 mmol/L 2-11 74 Glucose 93 mg/dL 70-100 BUN 12 mg/dL 6-24 Creatinine 0.5 mg/dL Low 0.50-1.40 One Over Creatinine 2.00 BUN/Creatinine Ratio 24.0 High 8-20 Calcium 9.4 mg/dL 8.1-9.9 Total Protein 6.6 GM/DL 6.2-8.1 Albumin 4.0 GM/DL 3.6-5.4 Globulin 2.6 GM/DL 2-4 Albumin/Globulin Ratio 1.5 1-3 Bilirubin Total 0.8 mg/dL 0.4-1.5 75 Alkaline Phosphatase 111 U/L High 30-110 Alt (SGPT) 62 U/L High 14-54 Ast (Sgot) 143 U/L High 12-42 eGFR Non- 132.2 > 60 eGFR 170.1 > 60 76 Lipid Profile (Trig/Chol/HDL) 02/07/2012 Triglyceride 275 mg/dL High 40- 200 Cholesterol 240 mg/dL High Less Than 200 77 High Density Lipoprotein 48 mg/dL 40-60 78 Cholesterol/HDL Ratio 5.00 AVERAGE High 1-4.44 Low Density Lipoprotein 137 mg/dL High Less Than 100 79 Laboratory test 10/18/2011 Hemoglobin A1c 5.5 finding Xray 07/19/2011 X-Ray, Chest, 2 infiltrate RLL small Views Laboratory test 07/19/2011 Bordetella Pertussis 80 finding <SEE NOTE> Laboratory test 05/31/2011 Monospot NEGATIVE Negative finding CBC Auto Diff 05/31/2011 White Blood Count 9.9 CUMM 4.8-10.8 Red Cell Count 4.14 CUMM Low 4.2-5.4 Hemoglobin 14.1 g/dL 12.0-16.0 Hematocrit 40 % 35-47 Mean Corpuscular Volume 96 um3 79-97 Mean Corpuscular Hemoglob 34 pg High 27-31 Mean Corpuscular HGB Cone 36 g/dL 32-36 Redcell Distribution WDTH 13 % 10.5-15 Platelet Count 283 CUMM 150-450 Mean Platelet Volume 8.4 um3 7.4-10.4 Gran % 78.6 % 38-83 Lymph % 18.0 % Low 25-47 Mononuclear % 1.7 % 1-9 Eosinophil % 0.9 % 0-6 Basophil % 0.8 % 0-2 Abs Lymphs 1.8 1.0-4.8 Abs Mononuclear 0.2 0-0.8 Absolute Neutrophil Count 7.8 High 1.5-7.7 Abs Eosinophils 0.1 0-0.6 Abs Basophils 0.1 0-0.2 81 Order 05/23/2011 Throat or nose culture, inhouse neg rapid strep screen, inhouse neg Laboratory test finding 05/23/2011 Culture Throat Rapid Screen neg Culture Throat neg Laboratory test finding 02/27/2011 Hemoglobin A1c 5.7 Laboratory test finding 02/22/2011 O P: Giardia/Crypto Screen NF 82 Stool Cult Sensitivity NF 83 Shiga Toxin 1 And 2 (Ehec) NEGATIVE BY [facility] <SEE NOTE> 84 Stool For Blood 02/22/2011 Stool For Blood NEGATIVE Negative Stool Color BROWN Stool Form SEMI-FORMED Stool Consistency SOFT Stool Cult & Sensitivity 02/22/2011 O P: Giardia/Crypto Screen BROWN 85 Campylobacter Culture NF 86 O P: Giardia/Crypto Screen NEGATIVE BY [facility] <SEE NOTE> 87 CBC Auto Diff 02/21/2011 White Blood Count 8.5 CUMM 4.8-10.8 88 Red Cell Count 4.05 CUMM Low 4.2-5.4 88 Hemoglobin 14.1 g/dL 12.0-16.0 88 Hematocrit 38 % 35-47 88 Mean Corpuscular Volume 95 um3 79-97 88, 89 Mean Corpuscular Hemoglob 35 pg High 27-31 88 Mean Corpuscular HGB Cone 37 g/dL High 32-36 88 Redcell Distribution WDTH 13 % 10.5-15 88 Platelet Count 256 CUMM 150-450 88 Mean Platelet Volume 8.6 um3 7.4-10.4 88 Gran % 72.4 % 38-83 88 Lymph % 18.7 % Low 25-47 88 Mononuclear % 6.1 % 1-9 88 Eosinophil % 1.7 % 0-6 88 Basophil % 1.1 % 0-2 88 Abs Lymphs 1.6 1.0-4.8 88 Abs Mononuclear 0.5 0-0.8 88 Absolute Neutrophil Count 6.1 1.5-7.7 88 Abs Eosinophils 0.1 0-0.6 88 Abs Basophils 0.1 0-0.2 88, 90 Comp Metabolic Panel 02/21/2011 Sodium 137 mmol/L 135-145 88 Potassium 4.5 mmol/L 3.5-5.0 88 Chloride 101 mmol/L 101-111 88 Co2 (Carbon Dioxide) 28.0 mmol/L 22-32 88 Anion Gap 8.0 mmol/L 2-11 88, 91 Glucose 106 mg/dL High 70-100 88 BUN 13 mg/dL 6-24 88 Creatinine 0.60 mg/dL 0.50-1.40 88 One Over Creatinine 1.60 88 BUN/Creatinine Ratio 21.7 High 8-20 88 Calcium 9.6 mg/dL 8.1-9.9 88 Total Protein 7.1 GM/DL 6.2-8.1 88 Albumin 4.1 GM/DL 3.6-5.4 88 Globulin 3.0 GM/DL 2-4 88 Albumin/Globulin Ratio 1.4 1-3 88 Bilirubin Total 0.8 mg/dL 0.4-1.5 88, 92 Alkaline Phosphatase 104 U/L 30-110 88 Alt (SGPT) 58 U/L High 14-54 88 Ast (Sgot) 77 U/L High 12-42 88 eGFR Non- 107.6 > 60 88 eGFR 138.4 > 60 88, 93 Lipid Profile (Trig/Chol/HDL) 02/21/2011 Triglyceride 338 mg/dL High 40- 200 88 Cholesterol 235 mg/dL High Less Than 200 88, 94 High Density Lipoprotein 41 mg/dL 40-60 88, 95 Cholesterol/HDL Ratio 5.73 AVERAGE High 1-4.44 88 Low Density Lipoprotein 126 mg/dL High Less Than 100 88, 96 Laboratory test finding 02/21/2011 TSH 3.84 MIU/ML 0.34-5.60 88 Cortisol 11.1 g/dL 88, 97 FSH 19.66 MIU/ML 88, 98 Lutenizing Hormone 7.06 MIU/ML 88, 99 Estrogens Fractionated 02/21/2011 Estrone 26 pg/mL () 88, 100 Estradiol 13 pg/mL () 88, 101 Laboratory test finding 02/21/2011 Prolactin 4.42 NG/ML 1.0-25.0 88 Ua Inhouse 02/20/2011 Ua Glucose - Ua Bilirubin - Ua Ketones - Ua Specific Mineral 1.030 Ua Blood - Ua PH 5.0 Ua Protein - Ua Urobilinogen - Ua Nitrite - Ua Leukocytes - Laboratory test finding 02/20/2011 Test Urine neg Laboratory test finding 09/15/2009 Culture Throat Rapid Screen neg Culture Throat neg Laboratory test 07/28/2008 Pathology Exam Benign Endomtrm 102 finding Laboratory test 07/28/2008 HCG, Quant < 2.0 mIU/mL 103 finding Laboratory test 07/26/2008 Act Partial Thrombo 26.9 seconds 21.7-35.7 finding Time Von Willebrand Factor Activity 91 % 50-170 Protime 07/26/2008 Protime 12.6 seconds 11.8-14.6 Inr 0.9 0.9-1.1 104 Laboratory test finding 07/26/2008 Factor VIII Activity 121 % 50-150 Urine Screen 07/26/2008 Urine Color YELLOW Yellow Urine Clarity CLEAR Clear Urine Glucose - Dipstick NEGATIVE mg/dL Negative Urine Bilirubin - Dipstick NEGATIVE Negative Urine Ketone NEGATIVE mg/dL Negative Urine Specific Mineral >=1.030 1.010-1.030 Urine Blood NEGATIVE Negative Urine PH 5.5 Low 6.5-7.5 Urine Protein - Dipstick TRACE mg/dL Negative Urine Urobilinogen - Dipstick 0.2 E.U./dL 0.2-1.0 Urine Nitrite - Dipstick NEGATIVE Negative Urine Leuk Esterase NEGATIVE Negative Basic Metabolic Panel 07/26/2008 Glucose 121 mg/dL High 76-115 BUN 19 mg/dL 5-23 Creatinine 0.7 mg/dL 0.5-1.4 Glom Filtration Rate, Estimate >60 mL/min >60 If >60 mL/min >60 105 BUN/Creat 27.1 Sodium 137 mEq/L 136-145 Potassium 3.9 mEq/L 3.5-5.1 Chloride 102 mEq/L 98-107 Carbon Dioxide 25 mEq/L 21-32 Anion Gap 14 mEq/L 8-16 Calcium 9.5 mg/dL 8.5-10.1 CBC 07/26/2008 White Blood Count 8.7 K/uL 3.1-10.7 Red Blood Count 4.34 M/uL 3.90-5.40 Hemoglobin 14.3 gm/dL 11.6-15.8 Hematocrit 41.9 % 36.0-46.1 Mean Cell Volume 96.5 fl 80.9-99.0 Mean Corpuscular HGB 32.9 pg High 25.9-32.7 Mean Corpuscular HGB Conc 34.1 g/dL 30.8-34.3 Platelet Count 300 K/uL 155-360 Red Cell Distri Width %CV 12.8 % 11.7-14.4 Mean Platelet Volume 10.2 fL 8.9-12.4 Laboratory test finding 07/22/2008 TSH 2.85 MIU/ML 0.34-5.60 106 Protime W/Inr 07/22/2008 Protime 12.2 10.9-13.3 106 Inr 1.02 106, 107 CBC With Manual Diff 07/22/2008 White Blood Count 8.5 CUMM 4.8-10.8 106 Red Cell Count 4.15 CUMM Low 4.2-5.4 106 Hemoglobin 13.9 g/dL 12.0-16.0 106 Hematocrit 39 % 35-47 106 Mean Corpuscular Volume 95 um3 79-97 106 Mean Corpuscular Hemoglob 34 pg High 27-31 106 Mean Corpuscular HGB Cone 36 g/dL 32-36 106 Redcell Distribution WDTH 13 % 10.5-15 106 Platelet Count 310 CUMM 150-450 106 Mean Platelet Volume 7.7 um3 7.4-10.4 106 Polysegmented Neutrophil 64 % 38-83 106 Band Neutrophil 4 % 0-8 106 Lymphocyte 26 % 25-47 106 Monocyte 3 % 0-13 106 Eosenophil 1 % 0-6 106 Basophil 1 % 0-2 106 Atypical Lymph 1 % 0-6 106 Absolute Neutrophil Count 5.7 106 RBC Morphology NORMAL 106 Laboratory test finding 05/24/2008 Cytology ASCUS;Endom cells;HRHPV(-) 108 Laboratory test finding 02/16/2008 Cytology ASCUS; HPV QNS 109 Laboratory test finding 10/05/2007 Culture Throat neg Ua Inhouse 03/31/2007 Ua Glucose - Ua Bilirubin - Ua Ketones - Ua Specific Mineral 1.030 Ua Blood - Ua PH 6.0 Ua Protein - Ua Urobilinogen - Ua Nitrite - Ua Leukocytes - CMP 12/06/2005 One Over Creatinine 1.66 Anion Gap 7.0 mmol/L 2-11 110 Albumin/Globulin Ratio 1.0 1-3 Albumin 3.4 GM/DL Low 3.6-5.4 Alkaline Phosphatase 126 U/L High 30-110 Alt (SGPT) 50 U/L 14-54 Ast (Sgot) 55 U/L High 12-42 BUN 13 mg/dL 6-24 Calcium 9.1 mg/dL 8.7-10.2 Chloride 103 mmol/L 101-111 Co2 (Carbon Dioxide) 26.0 mmol/L 22-32 Globulin 3.5 GM/DL 2-4 Glucose 104 mg/dL 70-105 Potassium 4.2 mmol/L 3.5-5.0 Sodium 136 mmol/L 135-145 Bilirubin Total 1.0 mg/dL 0.4-1.5 Total Protein 6.9 GM/DL 6.2-8.1 BUN/Creatinine Ratio 21.7 High 8-20 Creatinine 0.6 mg/dL 0.5-1.4 CBC With Electronic Diff Stat 12/06/2005 White Blood Count 9.6 CUMM 4.8- 10.8 Abs Basophils 0 0-0.2 Abs Eosinophils 0.1 0-0.6 Absolute Neutrophil Count 7.3 1.5-7.7 Abs Lymphs 1.5 1.0-4.8 Abs Mononuclear 0.6 0-0.8 Basophil % 0.4 % 0-2 Hematocrit 32 % Low 35-47 Definitive Flag 1 111 Hemoglobin 11.1 g/dL Low 12.0-16.0 Eosinophil % 1.1 % 0-6 Gran % 76.5 % 38-83 Lymph % 16.1 % Low 20-45 Mean Corpuscular HGB Cone 35 g/dL 32-36 Mean Corpuscular Hemoglob 34 pg High 27-31 Mean Corpuscular Volume 97 um3 79-97 Mean Platelet Volume 7.3 um3 Low 7.4-10.4 Mononuclear % 5.9 % 1-9 Platelet Count 399 CUMM 150-450 Red Cell Count 3.25 CUMM Low 4.2-5.4 Redcell Distribution WDTH 13 % 10.5-15 Laboratory test finding 11/29/2005 Lipase 30 U/L 22-51 Basic Metabolic Panel Stat 11/29/2005 One Over Creatinine 1.66 Anion Gap 7.0 mmol/L 2-11 112 BUN 11 mg/dL 6-24 Calcium 9.3 mg/dL 8.7-10.2 Chloride 102 mmol/L 101-111 Co2 (Carbon Dioxide) 25.0 mmol/L 22-32 Glucose 108 mg/dL High 70-105 Potassium 3.9 mmol/L 3.5-5.0 Sodium 134 mmol/L Low 135-145 BUN/Creatinine Ratio 18.3 8-20 Creatinine 0.6 mg/dL 0.5-1.4 Amylase Stat 11/29/2005 Amylase 33 U/L 30-125 CBC With Electronic Diff Stat 11/29/2005 White Blood Count 10.3 CUMM 4.8- 10.8 Abs Basophils 0 0-0.2 Abs Eosinophils 0.1 0-0.6 Absolute Neutrophil Count 7.4 1.5-7.7 Abs Lymphs 2.1 1.0-4.8 Abs Mononuclear 0.6 0-0.8 Basophil % 0.4 % 0-2 Hematocrit 42 % 35-47 Hemoglobin 14.8 g/dL 12.0-16.0 Eosinophil % 1.1 % 0-6 Gran % 72.0 % 38-83 Lymph % 20.8 % 20-45 Mean Corpuscular HGB Cone 35 g/dL 32-36 Mean Corpuscular Hemoglob 34 pg High 27-31 Mean Corpuscular Volume 97 um3 79-97 Mean Platelet Volume 8.0 um3 7.4-10.4 Mononuclear % 5.7 % 1-9 Platelet Count 367 CUMM 150-450 Red Cell Count 4.36 CUMM 4.2-5.4 Redcell Distribution WDTH 13 % 10.5-15 Urinalysis W/Microscopic Stat 11/29/2005 Ua Color YELLOW Appearance-Urine HAZY Bilirubin-Ur NEGATIVE Negative Blood-Urine TRACE Negative Epith Cells-Ur OCCASIONAL Esterase-Urine NEGATIVE Negative Glucose-Urine NEGATIVE Negative Ketones-Urine NEGATIVE Negative Nitrite NEGATIVE Negative PH-Urine 5.0 5-9 Protein-Urine NEGATIVE Negative Qlnfoigzadjw-Ug-MRA NEGATIVE Negative Specific Mineral-Ur 1.015 1.010-1.030 Bacteria-Urine 1+ RBC-Urine 0-2 0-2 WBC-Urine 0-1 0-5 Liver Panel 11/29/2005 Albumin/Globulin Ratio 1.2 1-3 Albumin 3.8 GM/DL 3.6-5.4 Alkaline Phosphatase 99 U/L 30-110 Alt (SGPT) 42 U/L 14-54 Ast (Sgot) 49 U/L High 12-42 Bilirubin Direct < 0.1 mg/dL Low 0.1-0.5 Globulin 3.1 GM/DL 2-4 Bilirubin Total 0.7 mg/dL 0.4-1.5 Total Protein 6.9 GM/DL 6.2-8.1 Laboratory test finding 11/08/2005 Cytology Normal PAP 113 Laboratory test finding 11/06/2005 Hepatitis C Antibody NEGATIVE Negative 114 Iron & Iron Binding 11/06/2005 Iron Total 136 g/dL 28-170 114 Capacity Total Iron Binding Capacity 317 g/dL 250-450 114 % Iron Saturation 43 % 15-55 114 Unsaturated Iron Binding 181 g/dL 114 Transferrin 226.5 114 Laboratory test finding 11/06/2005 Ferritin 209 NG/ML 11.0-307 114 Liver Function Panel 11/06/2005 Albumin/Globulin Ratio 1.3 1-3 114 Albumin 4.1 GM/DL 3.6-5.4 114 Alkaline Phosphatase 94 U/L 30-110 114 Alt (SGPT) 46 U/L 14-54 114 Ast (Sgot) 49 U/L High 12-42 114 Bilirubin Direct 0.2 mg/dL 0.1-0.5 114 Globulin 3.1 GM/DL 2-4 114 Indirect Bilirubin 0.2 mg/dL 0.1-0.75 114 Bilirubin Total 0.4 mg/dL 0.4-1.5 114 Total Protein 7.2 GM/DL 6.2-8.1 114 Laboratory test finding 11/06/2005 Ceruloplasma 33 mg/dL 17.0-48.0 114, 115 Smooth Muscle Antibody <1:40 TITER <1:40 114, 116 Lipid Profile 10/07/2005 Cholesterol 256 mg/dL High Less Than 200 117, 118 (Trig/Chol/HDL) Triglyceride 267 mg/dL High 40-200 117 High Density Lipoprotein 53 mg/dL 40-60 117 Low Density Lipoprotein 150 mg/dL High Less Than 100 117, 119 Cholesterol/HDL Ratio 4.83 AVERAGE High 1-4.44 117 Laboratory test finding 10/07/2005 TSH 1.93 MIU/ML 0.34-5.60 117 Comp Metabolic Panel 10/07/2005 One Over Creatinine 1.42 117 Anion Gap 9.0 mmol/L 2-11 117, 120 Albumin/Globulin Ratio 1.5 1-3 117 Albumin 4.4 GM/DL 3.6-5.4 117 Alkaline Phosphatase 96 U/L 30-110 117 Alt (SGPT) 57 U/L High 14-54 117 Ast (Sgot) 52 U/L High 12-42 117 BUN 11 mg/dL 6-24 117 Calcium 10.1 mg/dL 8.7-10.2 117 Chloride 102 mmol/L 101-111 117 Co2 (Carbon Dioxide) 26.0 mmol/L 22-32 117 Globulin 2.9 GM/DL 2-4 117 Glucose 94 mg/dL 70-105 117 Potassium 4.2 mmol/L 3.5-5.0 117 Sodium 137 mmol/L 135-145 117 Bilirubin Total 0.8 mg/dL 0.4-1.5 117 Total Protein 7.3 GM/DL 6.2-8.1 117 BUN/Creatinine Ratio 15.7 8-20 117 Creatinine 0.7 mg/dL 0.5-1.4 117 1 Normal Range 180 to 914 Indeterminate Range 145 to 180 Deficient Range <145 2 Acute inflammation: >10.00 3 Because ethnic data is not always readily available, this report includes an eGFR for both -Americans and non- Americans. The National Kidney Disease Education Program (NKDEP) does not endorse the use of the MDRD equation for patients that are not between the ages of 18 and 70, are , have extremes of body size, muscle mass, or nutritional status, or are non- or non-. According to the National Kidney Foundation, irrespective of diagnosis, the stage of the disease is based on the level of kidney function: Stage Description GFR(mL/min/1.73 m(2)) 1 Kidney damage with normal or decreased GFR 90 2 Kidney damage with mild decrease in GFR 60-89 3 Moderate decrease in GFR 30-59 4 Severe decrease in GFR 15-29 5 Kidney failure <15 (or dialysis) 4 Desirable: <150 Borderline High: 150-199 High: 200-499 Very High: >500 5 Desirable: <200 Borderline High: 200-239 High: >239 6 Low: <40 Desirable: 40-60 High: >60 7 Desirable: <100 Near Optimal: 100-129 Borderline High: 130-159 High: 160-189 Very High: >189 8 Because ethnic data is not always readily available, this report includes an eGFR for both -Americans and non- Americans. The National Kidney Disease Education Program (NKDEP) does not endorse the use of the MDRD equation for patients that are not between the ages of 18 and 70, are , have extremes of body size, muscle mass, or nutritional status, or are non- or non-. According to the National Kidney Foundation, irrespective of diagnosis, the stage of the disease is based on the level of kidney function: Stage Description GFR(mL/min/1.73 m(2)) 1 Kidney damage with normal or decreased GFR 90 2 Kidney damage with mild decrease in GFR 60-89 3 Moderate decrease in GFR 30-59 4 Severe decrease in GFR 15-29 5 Kidney failure <15 (or dialysis) 9 FASTING 12 HOUR 10 REFERENCE VALUE <=1.0 (Negative) 11 REFERENCE VALUE <20.0 (Negative) 12 Tests for antibodies to dsDNA and ELLIOTT antigens are not performed automatically unless the MALINDA result is > or= 3.0 U. Studies performed at [facility] indicate that positive MALINDA results <3.0 U are rarely accompanied by positive second order tests. Test Performed by: [facility] [place] [address] 13 FASTING 12 HOUR 14 Acute inflammation: >10.00 15 CHEST PAIN 16 Note: Persistent reduction for 3 months or more in an eGFR <60 mL/min/1.73 m2 defines CKD. Patients with eGFR values >/=60 mL/min/1.73 m2 may also have CKD if evidence of persistent proteinuria is present. The original MDRD equation for estimated GFR is not valid for patients less than 18 years of age. Additional information may be found at www.kdoqi.org. 17 Reference Guidelines*: Desirable: ........... < 200 mg/dL Borderline High: ..... 200-239 mg/dL High: ................ >=240 mg/dL * The National Cholesterol Education Program (NCEP) 18 Reference Guidelines*: Normal: ............. < 150 mg/dL Borderline High: .... 150-199 mg/dL High: ............... 200-499 mg/dL Very High: .......... > 500 mg/dL * Source: National Cholesterol Education Program (NCEP) 19 Reference Guidelines*: Low HDL: ..... < 40 mg/dL Normal: ..... 40-60 mg/dL Desirable: ... > 60 mg/dL *The National Cholesterol Education Program(NCEP) 20 (LDL CANNOT BE CALCULATED FOR TRIGS >400 mg/dL) 21 0.0 - 0.045 ng/mL: Normal 0.046 - 0.5 ng/mL: Suggestive 0.6 - 1.5 ng/mL: Consistent 22 0.0 - 0.045 ng/mL: Normal 0.046 - 0.5 ng/mL: Suggestive 0.6 - 1.5 ng/mL: Consistent 23 BACK PAIN/BETWEEN SHOULDERS, NOT FEELING RIGHT 24 No bands detected 25 Specific serologic response to B. burgdorferi infection is not detected, but cannot rule out early infection during which low or undetectable antibody levels to B. burgdorferi may be present. If clinically indicated, a new serum specimen should be submitted in 7-14 days. ADDITIONAL INFORMATION CDC criteria require >=5 bands for IgG or >=2 bands for IgM for the Immunoblot to be considered positive. Bands (e.g.,p41) may be detected in patients without Lyme disease, and patterns not meeting the CDC criteria should be interpreted with caution. Immunoblot should be ordered only on specimens that are positive or equivocal by a FDA-licensed Lyme disease antibody screening test (e.g., EIA). Test Performed by: [address] [id number] 26 Because ethnic data is not always readily available, this report includes an eGFR for both -Americans and non- Americans. The National Kidney Disease Education Program (NKDEP) does not endorse the use of the MDRD equation for patients that are not between the ages of 18 and 70, are , have extremes of body size, muscle mass, or nutritional status, or are non- or non-. According to the National Kidney Foundation, irrespective of diagnosis, the stage of the disease is based on the level of kidney function: Stage Description GFR(mL/min/1.73 m(2)) 1 Kidney damage with normal or decreased GFR 90 2 Kidney damage with mild decrease in GFR 60-89 3 Moderate decrease in GFR 30-59 4 Severe decrease in GFR 15-29 5 Kidney failure <15 (or dialysis) 27 Because ethnic data is not always readily available, this report includes an eGFR for both -Americans and non- Americans. The National Kidney Disease Education Program (NKDEP) does not endorse the use of the MDRD equation for patients that are not between the ages of 18 and 70, are , have extremes of body size, muscle mass, or nutritional status, or are non- or non-. According to the National Kidney Foundation, irrespective of diagnosis, the stage of the disease is based on the level of kidney function: Stage Description GFR(mL/min/1.73 m(2)) 1 Kidney damage with normal or decreased GFR 90 2 Kidney damage with mild decrease in GFR 60-89 3 Moderate decrease in GFR 30-59 4 Severe decrease in GFR 15-29 5 Kidney failure <15 (or dialysis) 28 SEE RESULT BELOW Name: LILLYLUIS ALFREDOLiv Prado : [address]: Juarez Loaiza MD Acct: [id number] Unit: [id number] AGE: 51 Location: THYROID Re12/12/16 SEX: F Status: REG REF SPEC: [id number] KATH: 12/12/16-1145 [facility] [address]: Juarez Loaiza MD REQ: [id number] RECD: 12/12/16-1230 STATUS: TERRELL RUIZ DR: Vineet Gregory MD _ ORDERED: FNA-IMG GUID BX/2, CY ADEQ-ADDL P, CYTO ADEQ-1ST P/2 FINAL DIAGNOSIS 1) Thyroid, left, Ultrasound guided, fine needle aspiration: Benign thyroid nodule-colloid/hyperplastic ([place] class II). 2) Thyroid, right, Ultrasound guided, fine needle aspiration Benign thyroid nodule-colloid/hyperplastic ([place] class II). 1) The specimen demonstrates moderate watery colloid, a abundant amount of benign appearing follicular epithelium arranged in uniform sheets, medium sized follicles and only occasional small groups. No features of papillary carcinoma are seen. In this clinical setting the risk of malignancy is less than 3%. Clinical management of this thyroid nodule should be based on clinical and radiographic features as well as the above. 2) The specimen demonstrates moderate watery colloid, a moderate amount of benign appearing follicular epithelium arranged in uniform sheets, medium sized follicles and only occasional small groups. No features of papillary carcinoma are seen. In this clinical setting the risk of malignancy is less than 3%. Clinical management of this thyroid nodule should be based on clinical and radiographic features as well as the above. #1. THYROID LEFT - US GUIDED FINE NEEDLE ASPIRATION, CONTINUED ON NEXT PAGE * ML=Testing performed at Main Lab DEPARTMENT OF PATHOLOGY, [address] [place] [address] Colin Lima M.D. Director [facility] # [id number] RUN DATE: 12/12/16 [facility] LAB LIVE PAGE 2 Patient: CARMELO CARR [id number] (Continued) SPECIMEN(S) RECEIVED: (Continued) #2. THYROID RIGHT - US GUIDED FINE NEEDLE ASPIRATION CLINICAL HISTORY 1) Left nodule- 3.8x 2.1x 2.5cm 2) Right nodule-1.2cm IMMEDIATE INTERPRETATION 1) Pass 1-adequate 2) Pass 1-inadequate, pass 2-adequate. GROSS DESCRIPTION 1) 2 - alcohol fixed slide(s) 1 - passes 2) 5 - alcohol fixed slide(s) 2 - passes Signed (signature on file) Alisson Hernandez MD 07/30 1221 END OF REPORT * ML=Testing performed at Main Lab DEPARTMENT OF PATHOLOGY, [address] [place] [address] Colin Lima M.D. Director [facility] # [id number] 29 E04.2,K21.9,R16.0,G47.00,E55.9 30 Performed at: [facility] [place] [id number] Educational Specialist: Rita Damon MD, Phone: [phone] E04.2,K21.9,R16.0,G47.00,E55.9 Call to [facility], Megan will fax missing results. 32 Reference Guidelines*: Desirable: ........... < 200 mg/dL Borderline High: ..... 200-239 mg/dL High: ................ >=240 mg/dL * The National Cholesterol Education Program (NCEP) 33 Reference Guidelines*: Normal: ............. < 150 mg/dL Borderline High: .... 150-199 mg/dL High: ............... 200-499 mg/dL Very High: .......... > 500 mg/dL * Source: National Cholesterol Education Program (NCEP) 34 Reference Guidelines*: Low HDL: ..... < 40 mg/dL Normal: ..... 40-60 mg/dL Desirable: ... > 60 mg/dL *The National Cholesterol Education Program(NCEP) 35 (LDL CANNOT BE CALCULATED FOR TRIGS >400 mg/dL) 36 Note: Persistent reduction for 3 months or more in an eGFR <60 mL/min/1.73 m2 defines CKD. Patients with eGFR values >/=60 mL/min/1.73 m2 may also have CKD if evidence of persistent proteinuria is present. The original MDRD equation for estimated GFR is not valid for patients less than 18 years of age. Additional information may be found at www.kdoqi.org. 37 Vitamin D deficiency has been defined by the [place] of [employer] and an Endocrine Society practice guideline as a level of serum 25-OH vitamin D less than 20 ng/mL (1,2). The Endocrine Society went on to further define vitamin D insufficiency as a level between 21 and 29 ng/mL (2). 1. IOM ([place] [employer]). 2010. Dietary reference intakes for calcium and D. [place]: The National Academies Press. 2. Denita MF, [place], Jazmin AVILA, et al. Evaluation, treatment, and prevention of vitamin D deficiency: an Endocrine Society clinical practice guideline. JCEM. 2010; 96(7):1911-30. Performed at: RN - [facility] [address] [id number] Educational Specialist: Rita Damon MD, Phone: [phone] 10/08/16 1145: NEUT% previously reported as: 62.6 % Amended result called to: [] - 10/08/16 at 1145 10/08/16 1145: LYMPH % previously reported as: 26.3 % Amended result called to: [] - 10/08/16 at 1145 10/08/16 1145: MONO % previously reported as: 7.8 % Amended result called to: [] - 10/08/16 at 1145 10/08/16 1145: EO% previously reported as: 2.0 % Amended result called to: [] - 10/08/16 at 1145 10/08/16 1145: BAS% previously reported as: 1.3 H % Amended result called to: [] - 10/08/16 at 1145 39 E04.2,K21.9,R16.0,G47.00,E55.9 40 Thyroglobulin Antibody measured by [facility] [employer] 41 According to the National Academy of Clinical Biochemistry, the reference interval for Thyroglobulin (TG) should be related to euthyroid patients and not for patients who underwent thyroidectomy. TG reference intervals for these patients depend on the residual mass of the thyroid tissue left after surgery. Establishing a post-operative baseline is recommended. The assay limit of quantitation is 0.1 ng/mL Thyroglobulin measured by Daniel [facility] Immunometric Assay 42 Blaster Helper: MILTON MILLARD 43 Blaster Helper: [id number] MILLARD 44 CHEST BURNING, SHOULDER BLADES BURNING, BP 170/100 45 Note: Persistent reduction for 3 months or more in an eGFR <60 mL/min/1.73 m2 defines CKD. Patients with eGFR values >/=60 mL/min/1.73 m2 may also have CKD if evidence of persistent proteinuria is present. The original MDRD equation for estimated GFR is not valid for patients less than 18 years of age. Additional information may be found at www.kdoqi.org. 46 0.0 - 0.045 ng/mL: Normal 0.046 - 0.5 ng/mL: Suggestive 0.6 - 1.5 ng/mL: Consistent 47 09/22/16 2334: NEUT% previously reported as: 57.4 % Amended result called to: [] - 09/22/16 at 2334 09/22/16 2334: LYMPH % previously reported as: 32.5 % Amended result called to: [] - 09/22/16 at 2334 09/22/16 2334: MONO % previously reported as: 7.1 % Amended result called to: [] - 09/22/16 at 2334 09/22/16 2334: EO% previously reported as: 2.3 % Amended result called to: [] - 09/22/16 at 2334 09/22/16 2334: BAS% previously reported as: 0.7 % Amended result called to: [] - 09/22/16 at 2334 48 Because ethnic data is not always readily available, this report includes an eGFR for both -Americans and non- Americans. The National Kidney Disease Education Program (NKDEP) does not endorse the use of the MDRD equation for patients that are not between the ages of 18 and 70, are , have extremes of body size, muscle mass, or nutritional status, or are non- or non-. According to the National Kidney Foundation, irrespective of diagnosis, the stage of the disease is based on the level of kidney function: Stage Description GFR(mL/min/1.73 m(2)) 1 Kidney damage with normal or decreased GFR 90 2 Kidney damage with mild decrease in GFR 60-89 3 Moderate decrease in GFR 30-59 4 Severe decrease in GFR 15-29 5 Kidney failure <15 (or dialysis) 49 FASTING 12 HOUR 50 FASTING 12 HOUR 51 FASTING 12 HOUR 52 Therapeutic target for the treatment of diabetes Mellitus patients is <7% HBA1C, and in selective patients <6.0%.Please refer to [place] Diabetes Association Diabetic care guidelines for further information. 53 Desirable <150 Borderline high 150-199 High 200-499 Very High >500 54 Desirable <200 Borderline high 200-239 High >239 55 Low <40 Desirable: 40-60 High: >60 56 Desirable: <100 mg/dL Near Optimal: 100-129 mg/dL Borderline High: 130-159 mg/dL High: 160-189 mg/dL Very High: >189 mg/dL 57 SEE RESULT BELOW Name: CARMELO CARR : [address]: Torsten Aguirre MD Acct: [id number] Unit: [id number] AGE: 50 Location: [facility] Re12/01/15 SEX: F Status: REG REF SPEC: [id number] KATH: 12/01/[address]: Torsten Aguirre MD REQ: [id number] RECD: 12/04/15 STATUS: SOUT _ ORDERED: IMAGE ANALYSIS, HPV/Thin Prep FINAL DIAGNOSIS Negative for Intraepithelial lesion or Malignancy A. Ectocervical/Endocervical Specimen Adequacy: Satisfactory of evaluation Transformation zone component identified Patient Information: HPV: High risk HPV RNA testing regardless of pap results. Actual Specimen Date: 12/04/15 LMP If Unknown: 2012 ?: N Post Menopausal?: Y Hysterectomy?: N Date Time Test Result Flag (u) Normal Range 12/01/15 4518 HPV RNA Negative Negative The high-risk HPV types detected by the assay include: 16, 18, 31, 33, 35, 39, 45, 51, 52, 56, 58, 59, 66, and 68. Signed (signature on file) LORENE Tristan (ASC) 12/04 9979 This Pap test was evaluated with the assistance of the InktdPrep Test Imaging System. Due to cytologic findings at the face burler microscope, comprehensive manual rescreening by a Cosmetics Machine Operator may be required. The Pap Smear is a screening test designed to aid in the detection of premalignant and malignant conditions of the uterine cervix. It is not a diagnostic procedure and should not be used as the sole means of detecting cervical cancer. Both false- positive and false- negative reports do occur. Depending on your risk status, a Pap smear should be obtained and evaluated every 1-3 years. END OF REPORT * ML=Testing performed at Main Lab DEPARTMENT OF PATHOLOGY, [address] [place] [address] Colin Lima M.D. Director [facility] # [id number] 58 The high-risk HPV types detected by the assay include: 16, 18, 31, 33, 35, 39, 45, 51, 52, 56, 58, 59, 66, and 68. 59 Blaster Helper: [id number] CARLENE ALVARADO 60 Reference Range and Interpretation: TnI (ng/mL) Interpretation Less Than 0.03 ng/mL Not supportive of diagnosis of MO 0.03 - 0.50 ng/mL Indeterminate: suggest serial studies if clinically indicated. Greater than 0.5 ng/mL Consistent with diagnosis of MO 61 Blaster Helper: [id number] HUTCHINSON IGGY 62 Because ethnic data is not always readily available, this report includes an eGFR for both -Americans and non- Americans. The National Kidney Disease Education Program (NKDEP) does not endorse the use of the MDRD equation for patients that are not between the ages of 18 and 70, are , have extremes of body size, muscle mass, or nutritional status, or are non- or non-. According to the National Kidney Foundation, irrespective of diagnosis, the stage of the disease is based on the level of kidney function: Stage Description GFR(mL/min/1.73 m(2)) 1 Kidney damage with normal or decreased GFR 90 2 Kidney damage with mild decrease in GFR 60-89 3 Moderate decrease in GFR 30-59 4 Severe decrease in GFR 15-29 5 Kidney failure <15 (or dialysis) 63 Because ethnic data is not always readily available, this report includes an eGFR for both -Americans and non- Americans. The National Kidney Disease Education Program (NKDEP) does not endorse the use of the MDRD equation for patients that are not between the ages of 18 and 70, are , have extremes of body size, muscle mass, or nutritional status, or are non- or non-. According to the National Kidney Foundation, irrespective of diagnosis, the stage of the disease is based on the level of kidney function: Stage Description GFR(mL/min/1.73 m(2)) 1 Kidney damage with normal or decreased GFR 90 2 Kidney damage with mild decrease in GFR 60-89 3 Moderate decrease in GFR 30-59 4 Severe decrease in GFR 15-29 5 Kidney failure <15 (or dialysis) 64 Because ethnic data is not always readily available, this report includes an eGFR for both -Americans and non- Americans. The National Kidney Disease Education Program (NKDEP) does not endorse the use of the MDRD equation for patients that are not between the ages of 18 and 70, are , have extremes of body size, muscle mass, or nutritional status, or are non- or non-. According to the National Kidney Foundation, irrespective of diagnosis, the stage of the disease is based on the level of kidney function: Stage Description GFR(mL/min/1.73 m(2)) 1 Kidney damage with normal or decreased GFR 90 2 Kidney damage with mild decrease in GFR 60-89 3 Moderate decrease in GFR 30-59 4 Severe decrease in GFR 15-29 5 Kidney failure <15 (or dialysis) 65 Desirable <150 Borderline high 150-199 High 200-499 Very High >500 66 Desirable <200 Borderline high 200-239 High >239 67 Low <40 Desirable: 40-60 High: >60 68 Desirable <100 Near Optimal 100-129 Borderline high 130-159 High 160-189 Very High >189 69 Interpretation: 10-19 ng/mL (mild to moderate deficiency) REFERENCE VALUE 25-HYDROXY D TOTAL (D2+D3) Optimum levels in the healthy population are 20-50, patients with bone disease may benefit from higher levels within this range. Test Performed by: [place] [address] Belt Weaver: Chirag Junior II, M.D., Ph.D. 70 Because ethnic data is not always readily available, this report includes an eGFR for both -Americans and non- Americans. The National Kidney Disease Education Program (NKDEP) does not endorse the use of the MDRD equation for patients that are not between the ages of 18 and 70, are , have extremes of body size, muscle mass, or nutritional status, or are non- or non-. According to the National Kidney Foundation, irrespective of diagnosis, the stage of the disease is based on the level of kidney function: Stage Description GFR(mL/min/1.73 m(2)) 1 Kidney damage with normal or decreased GFR 90 2 Kidney damage with mild decrease in GFR 60-89 3 Moderate decrease in GFR 30-59 4 Severe decrease in GFR 15-29 5 Kidney failure <15 (or dialysis) 71 Because ethnic data is not always readily available, this report includes an eGFR for both -Americans and non- Americans. The National Kidney Disease Education Program (NKDEP) does not endorse the use of the MDRD equation for patients that are not between the ages of 18 and 70, are , have extremes of body size, muscle mass, or nutritional status, or are non- or non-. According to the National Kidney Foundation, irrespective of diagnosis, the stage of the disease is based on the level of kidney function: Stage Description GFR(mL/min/1.73 m(2)) 1 Kidney damage with normal or decreased GFR 90 2 Kidney damage with mild decrease in GFR 60-89 3 Moderate decrease in GFR 30-59 4 Severe decrease in GFR 15-29 5 Kidney failure <15 (or dialysis) 72 Because ethnic data is not always readily available, this report includes an eGFR for both -Americans and non- Americans. The National Kidney Disease Education Program (NKDEP) does not endorse the use of the MDRD equation for patients that are not between the ages of 18 and 70, are , have extremes of body size, muscle mass, or nutritional status, or are non- or non-. According to the National Kidney Foundation, irrespective of diagnosis, the stage of the disease is based on the level of kidney function: Stage Description GFR(mL/min/1.73 m(2)) 1 Kidney damage with normal or decreased GFR 90 2 Kidney damage with mild decrease in GFR 60-89 3 Moderate decrease in GFR 30-59 4 Severe decrease in GFR 15-29 5 Kidney failure <15 (or dialysis) 73 Test Performed by: [address] [address] Belt Weaver: Fred Yuan III, M.D. R 74 Anion gap measurement may be of limited value in the presence of any alkalosis, especially in a combined acid base disorder. . 75 A metabolite of Naproxen, O-desmethylnaproxen, has been shown to interfere with the Jendrassik-Carlock method for measuring total bilirubin. Samples from patients who have taken Naproxen have shown spurious elevation in total bilirubin levels. 76 Because ethnic data is not always readily available, this report includes an eGFR for both -Americans and non- Americans. The National Kidney Disease Education Program (NKDEP) does not endorse the use of the MDRD equation for patients that are not between the ages of 18 and 70, are , have extremes of body size, muscle mass, or nutritional status, or are non- or non-. According to the National Kidney Foundation, irrespective of diagnosis, the stage of the disease is based on the level of kidney function: Stage Description GFR(mL/min/1.73 m(2)) 1 Kidney damage with normal or decreased GFR 90 2 Kidney damage with mild decrease in GFR 60-89 3 Moderate decrease in GFR 30-59 4 Severe decrease in GFR 15-29 5 Kidney failure <15 (or dialysis) 77 CHOLESTEROL INTERPRETATION: Desirable: Less than 200 MG/DL Borderline-High Risk: 200-239 MG/DL High-Risk: 240 MG/DL and over 78 HDL INTERPRETATION: Undesirable: High Risk: Less than 40 MG/DL Desirable: Low Risk: Greater than 60 MG/DL 79 LDL INTERPRETATION: Low Risk Optimal Level: LDL Less than 100 MG/DL Near or Above Optimal: LDL 100-129 MG/DL Borderline High Risk: LDL 130-159 MG/DL High Risk: LDL 160-189 MG/DL Very High Risk: LDL Greater than 189 MG/DL 80 RUN DATE: 07/21/11 [facility] NMI LIVE PAGE 1 RUN TIME: 1225 Specimen Inquiry RUN USER: INTERFACE Name: CARMELO CARR Status: REG REF Re07/19/11 Age/Sex: 45/F Unit#: [id number] Location: [facility] : 64 SPEC #: [id number] KATH: 07/19/11 STATUS: COMP REQ #: [id number] RECD: 07/19/[address]: Linda PERSAUD,Chirag Salazar SOURCE: NASOPHARYN ENTR: 07/19/[address]: FRANCISCO: ORDERED: PERTUSSIS JOSHUA COMMENTS: NO ANTIBIOTIC QUERIES: MEDENT REQUISITION # [id number] Procedure Result Verified Site > FAMTELLA PERTUSSIS Final -1224 ML BORDETELLA BY RAPID PCR Negative for Bordetella pertussis/parapertussis DNA Laboratory developed test. Test performed by: [facility] [address] [place], [place] [address] - [facility] Permit #[id number] [address] [place] [address] DEPARTMENT OF PATHOLOGY, [address] [place] [address] [facility] Permit #[id number] Colin Lima M.D. Director Esau Hyman M.D. Fuel System Maintenance Worker 81 Lymphopenia % 82 NO GROWTH OF CAMPYLOBACTER AFTER 48 HOURS 83 NEGATIVE FOR THE ENTERIC PATHOGENS - SALMONELLA, SHIGELLA, AEROMONAS, PLESIOMONAS AND YERSINIA. VIBRIO AND E. COLI 0157 NOT ROUTINELY TESTED FOR IN A STOOL CULTURE. PLEASE SUBMIT SAMPLE WITH SPECIFIC REQUEST FOR DESIRED ORGANISM(S). 84 NEGATIVE BY IMMUNOCHROMATOGRAPHIC ASSAY NEGATIVE BY IMMUNOCHROMATOGRAPHIC ASSAY 85 SOFT SEMI-FORMED 86 NO GROWTH OF CAMPYLOBACTER AFTER 48 HOURS 87 NEGATIVE BY IMMUNOASSAY NEGATIVE BY IMMUNOASSAY 88 Stool spec reports listed separately. SL 89 ADULT MCV GREATER THAN 105 FL INCUBATED 1/2 HR AT 37C WITHOUT SIGNIFICANT CHANGE. 90 Lymphopenia % H H Check Failed 91 Anion gap measurement may be of limited value in the presence of any alkalosis, especially in a combined acid base disorder. . 92 A metabolite of Naproxen, O-desmethylnaproxen, has been shown to interfere with the Jendrassik-Mariama method for measuring total bilirubin. Samples from patients who have taken Naproxen have shown spurious elevation in total bilirubin levels. 93 Because ethnic data is not always readily available, this report includes an eGFR for both -Americans and non- Americans. The National Kidney Disease Education Program (NKDEP) does not endorse the use of the MDRD equation for patients that are not between the ages of 18 and 70, are , have extremes of body size, muscle mass, or nutritional status, or are non- or non-. According to the National Kidney Foundation, irrespective of diagnosis, the stage of the disease is based on the level of kidney function: Stage Description GFR(mL/min/1.73 m(2)) 1 Kidney damage with normal or decreased GFR 90 2 Kidney damage with mild decrease in GFR 60-89 3 Moderate decrease in GFR 30-59 4 Severe decrease in GFR 15-29 5 Kidney failure <15 (or dialysis) 94 CHOLESTEROL INTERPRETATION: Desirable: Less than 200 MG/DL Borderline-High Risk: 200-239 MG/DL High-Risk: 240 MG/DL and over 95 HDL INTERPRETATION: Undesirable: High Risk: Less than 40 MG/DL Desirable: Low Risk: Greater than 60 MG/DL 96 LDL INTERPRETATION: Low Risk Optimal Level: LDL Less than 100 MG/DL Near or Above Optimal: LDL 100-129 MG/DL Borderline High Risk: LDL 130-159 MG/DL High Risk: LDL 160-189 MG/DL Very High Risk: LDL Greater than 189 MG/DL 97 REFERENCE RANGE: AM 8.7-22.4 PM LESS THAN 10 . 98 NORMAL RANGE MALES 1 - 20 NORMALLY MENSTRUATING FEMALES - Follicular Phase 3 - 9 - Mid-Cycle Peak 4 - 23 - Luteal Phase 1 - 6 POSTMENOPAUSAL FEMALES 16 - 114 . 99 NORMAL RANGE MALES 2 - 12 NORMALLY MENSTRUATING FEMALES - Follicular Phase 1 - 18 - Mid-Cycle Peak 24 - 105 - Luteal Phase 0.6 - 20 POSTMENOPAUSAL FEMALES 15 - 62 . 100 -- REFERENCE VALUE -- Premenopausal: 17-200 Postmenopausal: 7-40 101 -- REFERENCE VALUE -- Premenopausal: 15-350 Postmenopausal: <10 (E2 levels vary widely through the menstrual cycle.) Test Performed by: [facility] Dpt of Lab Med and Pathology [address] [place] [address] Belt Weaver: Fred Yuan III, M.D. 102 OPERATION/PROCEDURE Diagnostic hysteroscopy; dilatation + curettage DIAGNOSIS: "ENDOMETRIAL CURETTINGS": ROUNDED PIECE OF SMOOTH MUSCLE CONSISTENT WITH SUBMUCOSAL LEIOMYOMA. BENIGN PROLIFERATIVE-TYPE ENDOMETRIUM. WS/clf 1151 GROSS "ENDOMETRIAL CURETTINGS". The specimen is received in an appropriately labeled container. This contains 0.3 mL of pink tissue admixed with mucus. Filtered and submitted in toto within a single cassette. WS/clf MICROSCOPIC The sections demonstrate benign cervical and endometrial tissue. The endocervical glandular tissue is unremarkable. The glandular component of the glandular tissue demonstrates largely tubular glands, focally branching, predominantly proliferative in appearance. The stroma is spindled. Of note, there is a piece of smooth muscle, which has a rounded appearance supportive of a submucosal leiomyoma. I do not see evidence of malignancy. PRE OPERATIVE DIAGNOSIS Menometrorrhagia REVIEW CODE CODE: I CHIRAG Belcher MD 07/29/08 103 APPROXIMATE GESTATIONAL AGE AND BHCG RANGE 0-1 WEEK.......................0-50 mIU/mL 1-2 WEEKS....................40-300 mIU/mL 2-3 WEEKS.................100-1,000 mIU/mL 3-4 WEEKS.................500-6,000 mIU/mL 1-2 MONTHS............5,000-200,000 mIU/mL 2-3 MONTHS...........10,000-100,000 mIU/mL 2nd TRIMESTER..........3,000-50,000 mIU/mL 3rd TRIMESTER..........1,000-50,000 mIU/mL 104 THERAPEUTIC INR RANGE: 2.0 - 3.0 DVT, Pulmonary embolus, prophylaxis against venous thrombosis or systemic embolization in high risk patients. 2.5 - 3.5 Mechanical heart valves 105 Note: Persistent reduction for 3 months or more in an eGFR <60 mL/min/1.73 m2 defines CKD. Patients with eGFR values >/=60 mL/min/1.73 m2 may also have CKD if evidence of persistent proteinuria is present. The original MDRD equation for estimated GFR is not valid for patients less than 18 years of age. Additional information may be found at www.kdoqi.org. 106 PTT, Factor VIII level and Factor VIII ristocetin cofactor not drawn by biology laboratory assistant, [facility] will call pt for redraw. 107 STEVEN VALUE=2.01 ( OF 06/19/07 Recommended INR for Patients on Oral Anticoagulants Prophylaxis 2.0 - 3.0 Treatment of thrombosis 2.0 - 3.0 Prevention of embolism 2.0 - 3.0 Prevention of embolism from prosthetic heart valves 2.5 - 3.5 108 ----- RUN DATE: 05/27/08 [facility] NMI LIVE PAGE 1 RUN TIME: 1348 Specimen Inquiry RUN USER: INTERFACE -- Name: CARMELO CARR Status: REG REF Re05/23/08 Age/Sex: 42/F Unit#: [id number] Location: [facility] : 64 -- Specimen: [id number] TERRELL Spec Date: 05/23/[address]: Torsten suresh MD Spec Type: CYTOLOGY Received: 05/24/08-1354 Copies to: SOURCE ECTOCERVICAL/ENDOCERVICAL Thin Prep with Reflex HPV Test PATIENT INFORMATION ACTUAL COLLECTION DATE: 05/23/08 ? No POST MENOPAUSAL? No HYSTERECTOMY? No PREVIOUS ABNORMAL PAP SMEARS Yes DATE OF PRIOR SPECIMEN: 02/16/08 PATIENT HISTORY: Atypical Squamous cells of undetermined significance Last menstrual period unknown ADEQUACY OF SPECIMEN Satisfactory for evaluation * Transformation zone component identified * DIAGNOSIS Endometrial cells in a woman over or equal to 40 years of age * EPITHELIAL CELL ABNORMALITIES * Squamous cell * Atypical squamous cells * Of undetermined significance (ASC-US) * NOTE Specimen sent to [facility], [place], [place] for high risk HPV DNA testing on 05/24/08 at 1600 by girnarsoft. Endometrial cells after age 40, particularly out of phase or after menopause may be associated with benign endometrium, hormonal alterations and less commonly, endometrial/uterine abnormalities. Clinical correlation is recommended. -- DEPARTMENT OF PATHOLOGY, [address] [place] [address] [facility] Permit #[id number] Colin Lima M.D. Director of Laboratories -- -- RUN DATE: 05/27/08 [facility] NMI LIVE PAGE 2 RUN TIME: 1348 Specimen Inquiry RUN USER: INTERFACE -- Name: CARMELO CARR Status: REG REF Re05/23/08 Age/Sex: 42/F Unit#: [id number] Location: [facility] : 64 -- -- CONTINUED -- ADDENDUM Addendum #1 Entered: 05/27/08-1346 [facility]ras Human Papilloma Virus test results received with preparation and diagnosis completed by [facility], [place], [place]. Results: NEGATIVE High Risk (HPV types 16, 18, 31, 33, 35, 39, 45, 51, 52, 56, 58, 59, 68) Addendum Review Johan [facility]) 05/27/08 -- This Pap test was evaluated with the assistance of the [employer] Pap Test Imaging System. Due to cytologic findings at the face burler microscope, comprehensive manual rescreening by a Cosmetics Machine Operator was required. The Pap Smear is a screening test designed to aid in the detection of premalign ant and malignant conditions of the uterine cervix. It is not a diagnostic procedure a nd should not be used as the sole means of detecting cervical cancer. Both false- positive and false-negative reports do occur. Depending on your risk status, a Pap smear edi uld be obtained and evaluated every one to three years. Initial evaluation performed by Johan [facility]APA([facility]) 05/24/08 Final Interpretation electronically signed by: COLIN LIMA MD 05/24/08 16 18 -- -- DEPARTMENT OF PATHOLOGY, [address] [place] [address] [facility] Permit #[id number] Colin Lima M.D. Director of Laboratories -- 109 ----- RUN DATE: 02/18/08 [facility] NMI LIVE PAGE 1 RUN TIME: 1328 Specimen Inquiry RUN USER: INTERFACE -- Name: CARMELO CARR Status: REG REF Re02/16/08 Age/Sex: 42/F Unit#: [id number] Location: [facility] : 64 -- Specimen: [id number] TERRELL Spec Date: 02/16/[address]: Torsten suresh MD Spec Type: CYTOLOGY Received: 02/16/08-1440 Copies to: SOURCE ECTOCERVICAL/ENDOCERVICAL Thin Prep with Reflex HPV Test PATIENT INFORMATION ACTUAL COLLECTION DATE: 02/16/08 ? NO POST MENOPAUSAL? No HYSTERECTOMY? No LAST MENSTRUAL PERIOD: 02/02/08 ADEQUACY OF SPECIMEN Satisfactory for evaluation * Transformation zone component identified * DIAGNOSIS EPITHELIAL CELL ABNORMALITIES * Squamous cell * Atypical squamous cells * Of undetermined significance (ASC-US) * NOTE Specimen sent to [facility], [place], [place] for high risk HPV DNA testing on 02/17/08 at 1600 by DB. Less than 2 mls of fluid left in vial, sample will most likely be quantity not sufficient for HPV testing. ADDENDUM Addendum #1 Entered: 02/18/08 . -- DEPARTMENT OF PATHOLOGY, [address] [place] [address] [facility] Permit #[id number] oClin Lima M.D. Director of Laboratories -- -- RUN DATE: 02/18/08 [facility] NMI LIVE PAGE 2 RUN TIME: 1328 Specimen Inquiry RUN USER: INTERFACE -- Name: CARMELO CARR Status: REG REF Re02/16/08 Age/Sex: 42/F Unit#: [id number] Location: [facility] : 64 -- -- CONTINUED -- ADDENDUM (Continued) Addendum Review Johan [facility]) 02/18/08 -- Addendum #2 Entered: 02/18/08-1327 . Contrersa Human Papilloma Virus test results received with preparation and diagnosis completed by [facility], [place], [place]. Results: QUANTITY NOT SUFFICIENT High Risk (HPV types 16, 18, 31, 33, 35, 39, 45, 51, 52, 56, 58, 59, 68) Addendum Review Bri [facility]) 02/18/08 -- This Pap test was evaluated with the assistance of the [employer] Pap Test Imaging System. Due to cytologic findings at the face burler microscope, comprehensive manual rescreening by a Cosmetics Machine Operator was required. The Pap Smear is a screening test designed to aid in the detection of premalign ant and malignant conditions of the uterine cervix. It is not a diagnostic procedure a nd should not be used as the sole means of detecting cervical cancer. Both false- positive and false-negative reports do occur. Depending on your risk status, a Pap smear edi uld be obtained and evaluated every one to three years. Initial evaluation performed by [facility]) 02/17/08 Final Interpretation electronically signed by: COLIN LIMA MD 02/17/08 10 44 -- DEPARTMENT OF PATHOLOGY, [address] [place] [address] [facility] Permit #[id number] Colin Lima M.D. Director of Laboratories -- 110 Anion gap measurement may be of limited value in the presence of any alkalosis, especially in a combined acid base disorder. . 111 Lymphopenia % 112 Anion gap measurement may be of limited value in the presence of any alkalosis, especially in a combined acid base disorder. . 113 Run: 11/08/05 1135 LIS Specimen Inquiry Run User: INTERFACE -- Name: LUIS ALFREDO CARRA Johan Age/Sex: 40/F Location: [facility] Unit#: [id number] Unit#: [id number] Status: REG REF Room/Bed: Re11/07/05 Disch: Att Dr: Torsten Aguirre MD. -- Spec #: [id number] Recd: 11/08/050855 Status: TERRELL Garcia #: [id number] SpType: CYTOLOGY Sub Dr: Torsten Aguirre MD. ADEQUACY OF SPECIMEN Satisfactory for evaluation * Transformation zone component identified * DIAGNOSIS NEGATIVE FOR INTRAEPITHELIAL LESION OR MALIGNANCY * CYTOLOGY HISTORY CAUTERY? NO HORMONES? (name YES INTRAUTERINE DEVICE? NO LESION VISIBLE? NO INFECTIOUS SPECIMEN? NO SOURCE ECTOCERVICAL/ENDOCERVICAL Thin Prep with Reflex HPV Test The Pap Smear is a screening test designed to aid in the detection of premalign ant and malignant conditions of the uterine cervix. It is not a diagnostic procedure an d should not be used as the sole means of detecting cervical cancer. Both false-positive and false-negative reports do occur. Depending on your risk status, a Pap smear edi uld be obtained and evaluated every one to three years. PATIENT INFORMATION ACTUAL COLLECTION DATE: 11/06/05 ? NO POST MENOPAUSAL? No HYSTERECTOMY? No PREVIOUS ABNORMAL PAP SMEARS No Last menstrual period - UNKNOWN -- Signed Bri MIX CT(ASCP) 11/08/05 -- END OF REPORT 114 @ 115 TEST PERFORMED BY: [employer], [email or web address]. [address] [place] [phone] THE PERFORMANCE CHARACTERISTICS OF THIS TEST WERE ESTABLISHED THROUGH VALIDATION BY [facility], AND NO APPROVAL IS REQUIRED BY THE U.S. FOOD AND DRUG ADMINISTRATION (FDA). SPECIALTY [employer] IS REGULATED UNDER THE CLINICAL LABORATORY IMPROVEMENT AMENDMENTS OF 1988 ("CLIA") QUALIFIED TO PERFORM HIGH COMPLEXITY CLINICAL TESTING. TEST PERFORMED BY: [facility] [address] [place] [address] 117 FASTING 118 Classification: High . 119 CALCULATED LDL APPROXIMATES THE VALUE OF A DIRECT LDL MEASUREMENT. Classification: Borderline High . 120 Anion gap measurement may be of limited value in the presence of any alkalosis, especially in a combined acid base disorder. . Procedures Date CPT Code Description Status Comment 10/23/2017 75105 SC/Im Injections Completed 08/07/2017 30447 SC/Im Injections Completed 03/14/2017 Mammogram Completed 2016:benign; Bilateral (P: L breast only 07/23) Document: 01/19/09 - I Mammograms 02/12/2016 Colonoscopy Completed 2015:normal, biopsies pending, fu 10yrs 08/16/2015 52964 Electrocardiogram Complete Completed 11/21/2014 13379 X-Ray Foot Three Views Completed 01/18/2014 03328 Excise Nail Bed & Matrix Completed 08/17/2013 58143 Electrocardiogram Complete Completed 02/16/2013 54230 [employer]cise Nail Bed & Matrix Completed 07/22/2011 61489 Oximetry, Single Completed 07/19/2011 50814 X-Ray Chest Two Views Completed 05/31/2011 58482 SC/Im Injections Completed 02/27/2011 87507 Electrocardiogram Complete Completed 05/05/2010 0 Payment Completed 04/06/2010 0 Payment Completed 03/06/2010 0 Payment Completed 09/14/2009 0 Payment Completed 08/01/2009 0 Payment Completed 03/31/2009 0 Payment Completed 01/05/2009 0 Payment Completed 09/05/2008 0 Payment Completed 08/03/2008 0 Payment Completed 07/22/2008 83623 Electrocardiogram Complete Completed 11/24/2006 66736 Visual Acuity Screening Test Completed 07/28/2003 03301 X-Ray Ankle,Ap & Lateral Completed Views Encounters Type Date Location Provider CPT E/M Dx Office Visit 10/23/2017 1:30p Main Office Vineet Seth D.O. 33229 G47.00 R60.1 I10 M79.672 F41.1 M79.89 E53.8 Office Visit 09/20/2017 10:45a Main Office Vanessa Lopez 26227 H60.92 Office Visit 09/09/2017 1:45p Main Office Vineet Seth D.O. 02863 G90.09 E66.01 Z68.41 Office Visit 07/15/2017 1:45p Main Office Vineet Seth D.O. 02066 I73.9 E78.1 E55.9 I10 R16.0 M79.672 M79.671 G47.33 Office Visit 06/09/2017 2:45p Main Office Vineet Seth D.O. 49679 E78.1 E55.9 I10 R16.0 M79.672 M79.671 Office Visit 05/29/2017 2:45p Main Office Vineet Seth D.O. 89117 E78.1 E55.9 R16.0 I10 G47.00 R60.1 K21.9 Office Visit 10/31/2016 11:30a Main Office Vineet Seth D.O. 01726 R16.0 E04.2 E55.9 Office Visit 10/02/2016 3:30p Main Office Vineet Seth D.O. 34573 R16.0 E04.2 J11.1 E55.9 Office Visit 09/26/2016 11:30a Main Office Vineet Seth D.O. 37753 J20.9 J01.00 Office Visit 09/05/2016 12:55p Main Office Vineet Seth D.O. 81484 K21.9 I10 G47.00 Office Visit 08/26/2016 1:45p Main Office Chirag Mckeon M.D. 07473 H92.02 Office Visit 04/09/2016 1:30p Main Office Vineet Seth D.O. 19914 K21.9 I10 R60.1 E55.9 G47.00 M79.89 E78.0 R20.3 Office Visit 12/12/2015 10:00a Main Office Vineet Seth D.O. 24895 I10 R60.1 E55.9 G47.00 K21.9 M79.89 Office Visit 09/11/2015 9:30a Main Office Vineet Seth D.O. 35142 F41.1 Z12.11 I10 E66.8 Z68.41 Office Visit 08/16/2015 2:45p Main Office Vineet Seth D.O. 66609 R07.9 Office Visit 08/10/2015 9:45a Main Office Vineet Seth D.O. 50218 I10 M79.89 F41.1 G47.36 E66.8 Office Visit 06/12/2015 10:45a Main Office Torsten Aguirre M.D. 56780 J06.9 R03.0 Office Visit 04/06/2015 9:30a Main Office Vineet Seth D.O. 88286 E55.9 G47.30 R73.09 G47.00 R60.1 Office Visit 11/21/2014 9:15a Main Office Torsten Aguirre M.D. 98912 719.47 729.81 924.20 782.0 V65.49 Office Visit 09/02/2014 9:45a Main Office Vineet Seth D.O. 95772 401.9 564.5 530.81 346.10 327.23 790.29 Office Visit 01/18/2014 1:30p Main Office Vineet Seth D.O. 70358 703.0 681.10 Office Visit 08/17/2013 2:30p Main Office Vineet Seth D.O. 84851 V72.83 V72.8 522.5 401.9 784.2 355.5 Office Visit 02/22/2013 10:15a Main Office Vineet Seth D.O. 35254 401.9 703.0 729.81 355.6 Office Visit 02/16/2013 10:00a Main Office Vineet Seth D.O. 69070 703.0 401.9 729.81 681.10 Office Visit 02/01/2013 9:30a Main Office RoloVineet D.O. 16748 703.0 401.9 729.81 355.5 Office Visit 08/19/2012 1:15p Main Office Torsten Aguirre M.D. 03995 845.00 E927.0 729.81 Office Visit 02/05/2012 4:20p Main Office Parul Hanson P.A. 58274 796.2 782.3 729.5 272.2 992.6 995.3 Office Visit 11/15/2011 3:20p Main Office Parul Hanson P.A. 38801 729.5 Office Visit 10/18/2011 1:40p Main Office Parul Hanson P.A. 63928 782.0 729.5 790.21 627.2 796.2 Office Visit 07/22/2011 9:00a Main Office Parul Hanson P.A. 18635 486 782.1 Office Visit 07/19/2011 9:30a Main Office Chirag Mckeon M.D. 79190 786.2 486 V06.1 V07.2 Office Visit 05/31/2011 11:00a Main Office Chirag Mckeon M.D. 88850 462 Office Visit 05/23/2011 4:00p Main Office Carol Lopez.A. 30673 461.8 462 784.1 Office Visit 03/26/2011 1:15p Main Office Torsten Aguirre M.D. 62635 784.1 327.23 784.0 346.10 V76.10 V04.81 V07.2 Office Visit 02/27/2011 2:20p Main Office Parul Hanson P.A. 43553 564.1 782.3 278.01 794.8 992.6 780.79 790.21 Office Visit 02/20/2011 11:20a Main Office Carol Lopez.A. 07925 782.3 626.0 278.01 787.91 782.1 Office Visit 08/01/2010 2:15p Main Office Torsten Aguirre M.D. 86025 784.0 346.10 780.79 278.01 Office Visit 07/16/2010 1:45p Main Office Torsten Aguirre M.D. 63165 528.3 Office Visit 07/09/2010 1:15p Main Office Torsten Aguirre M.D. 92221 528.3 782.1 784.42 462 Office Visit 06/06/2010 8:40a Main Office Vanessa Lopez 50992 112.9 Office Visit 05/23/2010 10:00a Main Office Vanessa Lopez 68344 112.9 Office Visit 12/12/2009 2:00p Main Office Torsten Aguirre M.D. 90632 386.11 346.10 625.70 530.81 Office Visit 11/08/2009 12:55p Main Office Torsten Aguirre M.D. 29439 782.8 625.70 V76.10 530.81 346.10 Office Visit 09/15/2009 10:20a Main Office Vanessa Lopez 59146 462 Office Visit 08/23/2009 10:00a Main Office Vanessa Lopez 41144 530.81 461.0 Office Visit 04/25/2009 1:30p Main Office Torsten Aguirre M.D. 56446 530.81 346.10 Office Visit 01/10/2009 2:45p Main Office Torsten Aguirre M.D. 20493 346.10 530.81 787.91 V70.3 V76.10 Office Visit 09/29/2008 4:45p Main Office Chirag Mckeon M.D. 99671 461.0 Office Visit 07/22/2008 9:30a Main Office Torsten Aguirre M.D. 42650 V72.84 626.4 795.01 346.10 530.81 724.5 Office Visit 06/28/2008 5:00p Main Office Torsten Aguirre M.D. 34445 346.10 530.81 796.2 795.01 724.5 Office Visit 05/24/2008 11:00a Main Office Torsten Aguirre M.D. 37123 795.01 Office Visit 02/16/2008 10:00a Main Office Torsten Aguirre M.D. 62056 V76.10 V76.2 346.10 626.4 530.81 Office Visit 12/23/2007 1:15p Main Office Torsten Aguirre M.D. 16928 845.00 346.10 793.80 Office Visit 10/14/2007 3:00p [place] [address] 462 Office Visit 10/05/2007 9:45a Main Office Torsten Aguirre M.D. 71094 626.4 530.81 346.10 462 Office Visit 09/23/2007 5:00p Main Office Torsten Aguirre M.D. 43517 462 Office Visit 08/28/2007 3:30p Main Office Torsten Aguirre M.D. 85962 346.10 530.81 Office Visit 06/26/2007 12:55p Main Office Torsten Aguirre M.D. 97114 346.10 626.4 V04.81 V07.2 Office Visit 03/31/2007 4:15p Main Office Torsten Aguirre M.D. 14408 724.5 Office Visit 11/24/2006 2:00p Main Office Torsten Aguirre M.D. 59793 V76.10 787.91 346.10 530.81 Office Visit 02/17/2006 3:45p Main Office Torsten Aguirre M.D. 40950 346.10 616.10 Office Visit 11/29/2005 1:45p Main Office linda 15550 789.01 Office Visit 11/06/2005 9:45a Main Office Torsten Aguirre M.D. 87774 300.4 787.91 790.4 V76.10 V76.2 V72.31 Office Visit 10/07/2005 8:30a Main Office Torsten Aguirre M.D. 22188 698.9 787.91 300.4 V77.91 Office Visit 10/03/2005 9:45a Main Office klepack 66633 698.9 Office Visit 08/27/2005 9:30a Main Office Torsten Aguirre M.D. 55072 698.9 112.3 Office Visit 04/15/2005 9:30a Main Office Torsten Aguirre M.D. 10292 477.9 Office Visit 01/10/2005 2:00p Main Office Torsten Aguirre M.D. 63025 530.81 Office Visit 12/28/2003 9:45a Main Office Torsten Aguirre M.D. 35929 723.1 530.81 724.5 Office Visit 07/28/2003 9:45a Main Office linda 83365 729.5 Plan of Care Future Appointment(s):11/24/2017 11:00 am - Vineet Seth D.O. at Main [facility]0810/23/2017 - Vineet Seth D.O.G47.00 Insomnia, xoceuefauadD60.1 Generalized [id number] Essential (primary) hypertensionFollow up:1 month recheck HTN/leg pain/kjhngmnvdrbbtF52.672 Pain in left footF41.1 Generalized anxiety krwmzsbyV37.89 Other specified soft tissue eihieuomsY10.8 Deficiency of other specified B group vitamins
[2017-11-06] MEDS ORDERED: Aspirin 81 mg CHEW TAB* 81 MG TAB.CHEW PO ONE (15:19)
[2017-11-06] MEDS ORDERED: Nitroglycerin 0.2 MG/HR PATCH* (5 MG) TRANSDERM ONE (15:19)
[2017-11-06 15:57] LABS: ABS Basophils 0 10^3/ul (0-0.2); ABS Eosinophils 0.1 10^3/ul (0-0.6); ABS Lymphocytes 2.9 10^3/ul (1.0-4.8); ABS Monocytes 0.7 10^3/ul (0-0.8); ABS Neutrophils 8.1 10^3/ul (1.5-7.7); ABS Nucleated RBC 0 10^3/ul; Eosinophil % 1.1 % (0-6); Hematocrit 41 % (35-47); Hemoglobin 14.4 g/dl (12.0-16.0); Lymphocyte % 24.5 % (25-47); Mean Corpuscular HGB Conc 35 g/dl (31-36); Mean Corpuscular Hemoglobin 33 pg (27-31); Mean Corpuscular Volume 96 fL (80-97); Mean Platelet Volume 8.3 um3 (7.4-10.4); Nucleated Red Blood Cells % 0; Platelet Count 274 10^3/ul (150-450); Red Blood Count 4.31 10^6/ul (4.0-5.4); Red Cell Distribution Width 13 % (10.5-15); White Blood Count 11.9 10^3/ul (3.5-10.8)
[2017-11-06 16:10] LABS: INR 0.94 (0.77-1.02)
--- NOTE | 2017-11-06 16:13 | RAD ---
Indication: Burning chest pain. Comparison: September 26, 2016 chest radiograph and May 17, 2017 CT. Technique: Upright AP 1541 hours Report: Obese body habitus. No focal pulmonary lesion, compelling alveolar consolidation, pleural effusion, pneumothorax. Mild cardiomegaly. Unremarkable central pulmonary vasculature and mediastinal contours accounting for rightward rotation. IMPRESSION: Mild cardiomegaly. No acute cardiopulmonary process evident.
[2017-11-06] MEDS ORDERED: Morphine INJ* 10 MG/ML 1 ML CARPUJECT IV ONE (16:21)
[2017-11-06] MEDS ORDERED: Ondansetron INJ* 2 MG/ML VIAL IV ONE (16:21)
[2017-11-06 16:23] LABS: EGFR Non-African American 90.5 (>60)
[2017-11-06] MEDS ORDERED: Morphine VIAL* 4 MG/ML VIAL (1 ml vial) IV ONE (16:25)
[2017-11-06] MEDS ORDERED: Iohexol 350* (CONTRAST) 500 ML MDV IV ONE (16:33)
[2017-11-06] MEDS ORDERED: Al Hydrox/Mg Hydrox/Simet LIQ* 30 ML UDC PO ONE (17:25)
[2017-11-06] MEDS ORDERED: Lidocaine 2% VISCOUS* 15 ML UDC PO ONE (17:25)
[2017-11-06] MEDS ORDERED: Acetaminophen TAB* 325 MG PO PRN (17:26)
[2017-11-06] MEDS ORDERED: Ondansetron INJ* 2 MG/ML VIAL IV PRN (17:26)
--- NOTE | 2017-11-06 17:31 | RAD ---
Indication: Chest pain. Contrast: Administered 100.1 ml of OMNIPAQUE 350 mg/ml CTA of the chest, abdomen and pelvis was performed after IV contrast administration. Coronal and sagittal reconstructed images were obtained. There is no evidence of thoracic aortic aneurysm. There is no evidence of aortic dissection. The aorta appears normal in caliber. Origins of the celiac axis, superior mesenteric artery and renal arteries are unremarkable. Mild atherosclerosis is noted of the common iliac artery. External iliac arteries and common femoral arteries are unremarkable. The pulmonary arterial tree is well opacified. No definite filling defects are present to suggest pulmonary embolus. There is an enlarged heterogeneous left lobe of the thyroid with multiple low density lesions. Small 3 to 5 mm right paratracheal, left AP window lymph nodes are noted. No hilar adenopathy is noted. There is cardiomegaly without evidence of pericardial effusion. The trachea and major bronchi appear patent. No definite pulmonary nodules are noted. No alveolar consolidation is noted. The liver is normal in size. No focal lesions or intrahepatic duct dilatation is noted. The gallbladder has been resected. Pancreas demonstrates no mass or pancreatic ductal dictation. The spleen is normal in size. The left adrenal gland is normal. There is a mass in the right adrenal gland measuring 2.7 cm. This is nonspecific. No retroperitoneal adenopathy is noted. No dilated loops of bowel are noted. The uterus and ovaries are grossly unremarkable. No hernias are noted. The urinary bladder is unremarkable. IMPRESSION: No evidence of aortic dissection is noted. There is a right adrenal mass unchanged from May 17, 2017 although not typical of adenoma.
--- NOTE | 2017-11-06 17:36 | ED ---
Dennis Lopez Stephanie, scribed for Vazquez Cannon on 11/06/17 at 1521 . HPI Chest Pain - HPI Summary HPI Summary: The pt is a 52 y/o F presenting to the ED with c/o CP that began at 07:00 this morning. The pt states her CP radiated through to her back. She denies cough. The pt denies hx of CP with ambulation. - History of Current Complaint Chief Complaint: EDChestPainROMI Time Seen by Provider: 11/06/17 14:59 Hx Obtained From: Patient Onset/Duration: Started Hours Ago - 7, Still Present Time of Onset: 07:00 Timing: Constant Current Severity: Moderate Pain Intensity: 6 Pain Scale Used: 0-10 Numeric Chest Pain Location: Diffuse Chest Pain Radiates: Yes Chest Pain Radiates To:: Back Character: Burning Aggravating Factor(s): Nothing Alleviating Factor(s): Nothing Associated Signs and Symptoms: Positive: Chest Pain. Negative: Cough - Allergy/Home Medications Allergies/Adverse Reactions: Allergies Allergy/AdvReac Type Severity Reaction Status Date / Time MS Ciprofloxacin Allergy Severe GI Upset Verified 09/09/16 11:24 [Ciprofloxacin] MS Codeine [Codeine] Allergy Itching Verified 09/09/16 11:24 Home Medications: Home Medications Chlorthalidone TAB* [Hygroton TAB*] 25 mg PO DAILY 11/06/17 [History Confirmed 11/06/17] Cholecalciferol TAB* [Vitamin D TAB*] 5,000 units PO DAILY 11/06/17 [History Confirmed 11/06/17] Fluticasone NASAL SPRAY 50MCG* [Flonase NASAL SPRAY 50MCG*] 2 spray BOTH NARES DAILY 11/06/17 [History Confirmed 11/06/17] Icosapent Ethyl [Vascepa] 1 gm PO BID 11/06/17 [History Confirmed 11/06/17] Multivitamins/Minerals TAB* [Theragran/minerals TAB*] 1 tab PO DAILY 11/06/17 [ History Confirmed 11/06/17] Simvastatin TAB(NF) [Zocor(NF)] 20 mg PO DAILY 11/06/17 [History Confirmed 11/06] Vitamin B Complex TAB* [B Complex-50*] 1 tab PO DAILY 11/06/17 [History Confirmed 11/06/17] methylPREDNISolone TAB* [Medrol TAB*] 4 mg PO .DAILY DIRECTED 11/06/17 [ History Confirmed 11/06/17] PMH/Surg Hx/FS Hx/Imm Hx Endocrine/Hematology History: Denies: Hx Anticoagulant Therapy, Hx Blood Disorders, Hx Blood Transfusions, Hx Bone Marrow Disease, Hx Diabetes, Hx Systemic Lupus Erythematosus, Hx Sickle Cell Disease, Hx Thyroid Disease, Hx Anemia, Hx Unexplained Bleeding, Other Endocrine/Hematological Disorders Cardiovascular History: Reports: Hx Hypertension Denies: Hx Aneurysm, Hx Angina, Hx Angioplasty, Hx Atrial Fibrillation, Hx Auto Implanted Cardiovert Defib, Hx Cardiac Arrest, Hx Cardiomegaly, Hx Congenital Heart Disease, Hx Congestive Heart Failure, Hx Coronary Artery Disease, Hx Deep Vein Thrombosis, Hx Embolism, Hx Hypercholesterolemia, Hx Hypotension, Hx Myocardial Infarction, Hx Pacemaker/ICD, Hx Peripheral Vascular Disease, Hx Rheumatic Fever, Hx Syncope, Hx Valvular Heart Disease, Other Cardiovascular Problems/Disorders Respiratory History: Denies: Hx Asthma, Hx Bronchopulmonary Dysplasia, Hx Chronic Bronchitis, Hx Chronic Obstructive Pulmonary Disease (COPD), Hx Cystic Fibrosis, Hx Lung Cancer , Hx Pleural Effusion, Hx Pneumonia, Hx Pulmonary Edema, Hx Pulmonary Embolism, Hx Seasonal Allergies, Hx Sleep Apnea, Other Respiratory Problems/Disorders GI History: Denies: Hx Cirrhosis, Hx Crohn's Disease, Hx Diverticulosis, Hx Gall Bladder Disease, Hx Gastroesophageal Reflux Disease, Hx Gastrointestinal Bleed, Hx Hiatal Hernia, Hx Irritable Bowel, Hx Jaundice, Hx Obstructive Bowel, Hx Ileostomy, Hx Pyloric Stenosis, Hx Ulcer, Hx Urosepsis, Other GI Disorders History: Denies: Hx Acute Renal Failure, Hx Benign Prostatic Hyperplasia, Hx Chronic Renal Failure, Hx Dialysis, Hx Kidney Infection, Hx Kidney Stones, Hx Renal Disease, Other Problems/Disorders Musculoskeletal History: Denies: Hx Arthritis, Hx Rheumatoid Arthritis, Hx Back Problems, Hx Bursitis , Hx Congenital Bone Abnormalities, Hx Fibromyalgia, Hx Gout, Hx Orthopedic Injury, Hx Osteoporosis, Hx Scoliosis, Hx Tendonitis, Other Musculoskeletal History Sensory History: Denies: Hx Cataracts, Hx Contacts or Glasses, Hx Eye Injury, Hx Eye Prosthesis, Hx Glaucoma, Hx Legally Blind, Hx Macular Degeneration, Hx Vision Problem, Hx Deafness, Hx Hearing Aid, Hx Hearing Problem, Other Sensory Impairments Opthamlomology History: Denies: Hx Cataracts, Hx Contacts or Glasses, Hx Eye Injury, Hx Eye Prosthesis, Hx Glaucoma, Hx Legally Blind, Hx Macular Degeneration, Hx Vision Problem, Other Sensory Impairments Neurological History: Denies: Hx CVA, Hx Dementia, Hx Developmental Delay, Hx Headaches, Hx Migraine, Hx Nerve Disease, Hx Peripheral Neuropathy, Hx Seizures, Hx Spinal Cord Injury, Hx Transient Ischemic Attacks (TIA), Other Neuro Impairments/ Disorders Psychiatric History: Denies: Hx Anxiety, Hx Attention Deficit Hyperactivity Disorder, Hx Autism, Hx Eating Disorder, Hx Oppositional Hinckley Disorder, Hx Depression, Hx Panic Disorder, Hx Post Traumatic Stress Disorder, Hx Inpatient Treatment, Hx Community Mental Health Tx, Hx Schizophrenia, Hx Bipolar Disorder, Hx Suicide Attempt, Hx of Violent Episodes Against Others, Hx Substance Abuse, Other Psychiatric Issues/Disorders - Cancer History Hx Chemotherapy: No Hx Radiation Therapy: No - Surgical History Surgery Procedure, Year, and Place: TUBAL LIGATION 1991, GALLBLADDER 2004, BREAST REDUCTION 2000, 1997 KNEE SCOPE. Tarsal tunnel Infectious Disease History: No Infectious Disease History: Denies: Hx Clostridium Difficile, Hx Hepatitis, Hx Human Immunodeficiency Virus (HIV), Hx of Known/Suspected MRSA, Hx Shingles, Hx Tuberculosis, Hx Known/ Suspected VRE, Hx Known/Suspected VRSA, History Other Infectious Disease, Traveled Outside the [place] in Last 30 Days - Family History Known Family History: Negative: Cardiac Disease, Hypertension, Diabetes, Renal Disease, Respiratory Disease, Seizure Disorder, Blood Disorder - Social History Occupation: Disabled Lives: Alone Alcohol Use: Occasionally Hx Substance Use: No Substance Use Type: Reports: None Hx Tobacco Use: No Smoking Status (MU): Never Smoked Tobacco Have You Smoked in the Last Year: No Review of Systems Negative: Fever Positive: Chest Pain Negative: Cough Negative: Slurred Speech All Other Systems Reviewed And Are Negative: Yes Physical Exam - Summary Physical Exam Summary: Appearance: Well appearing, no pain distress Skin: warm, dry, reflects adequate perfusion Head/face: normal Eyes: EOMI, NANNETTE ENT: normal Neck: supple, non-tender Respiratory: CTA, breath sounds present Cardiovascular: RRR, pulses symmetrical Abdomen: Epigastric tenderness, soft Bowel: present Musculoskeletal: normal, strength/ROM intact Neuro: normal, sensory motor intact, A&Ox3 Triage Information Reviewed: Yes Vital Signs On Initial Exam: Initial Vitals Temp Pulse Resp BP Pulse Ox 98.2 F 80 20 148/80 96 11/06/17 14:39 11/06/17 14:39 11/06/17 14:39 11/06/17 14:39 11/06/17 14:39 Vital Signs Reviewed: Yes Diagnostics - Vital Signs Vital Signs Temp Pulse Resp BP Pulse Ox 11/06/17 14:47 80 22 144/85 95 11/06/17 14:46 79 13 97 11/06/17 14:39 98.2 F 80 20 148/80 96 - Laboratory Lab Results: Lab Results 11/06/17 11/06/17 11/06/17 Range/Units 15:29 15:29 15:29 WBC 11.9 H (3.5-10.8) 10^3/ul RBC 4.31 (4.0-5.4) 10^6/ul Hgb 14.4 (12.0-16.0) g/dl Hct 41 (35-47) % MCV 96 (80-97) fL MCH 33 H (27-31) pg MCHC 35 (31-36) g/dl RDW 13 (10.5-15) % Plt Count 274 (150-450) 10^3/ul MPV 8.3 (7.4-10.4) um3 Neut % (Auto) 67.9 (38-83) % Lymph % (Auto) 24.5 L (25-47) % [place] % (Auto) 6.1 (0-7) % Eos % (Auto) 1.1 (0-6) % Baso % (Auto) 0.4 (0-2) % Absolute Neuts (auto) 8.1 H (1.5-7.7) 10^3/ul Absolute Lymphs (auto) 2.9 (1.0-4.8) 10^3/ul Absolute Monos (auto) 0.7 (0-0.8) 10^3/ul Absolute Eos (auto) 0.1 (0-0.6) 10^3/ul Absolute Basos (auto) 0 (0-0.2) 10^3/ul Absolute Nucleated RBC 0 10^3/ul Nucleated RBC % 0 INR (Anticoag Therapy) 0.94 (0.77-1.02) APTT 29.9 (26.0-36.3) seconds D-Dimer, Quantitative < 200 (Less Than 230) ng/mL Sodium (139-145) mmol/L Potassium (3.5-5.0) mmol/L Chloride (101-111) mmol/L Carbon Dioxide (22-32) mmol/L Anion Gap (2-11) mmol/L BUN (6-24) mg/dL Creatinine (0.51-0.95) mg/dL Est GFR ( Amer) (>60) Est GFR (Non-Af Amer) (>60) BUN/Creatinine Ratio (8-20) Glucose (70-100) mg/dL Lactic Acid (0.5-2.0) mmol/L Calcium (8.6-10.3) mg/dL Total Bilirubin (0.2-1.0) mg/dL AST (13-39) U/L ALT (7-52) U/L Alkaline Phosphatase (34-104) U/L Troponin I (<0.04) ng/mL B-Natriuretic Peptide 20 ( - 100) pg/mL Total Protein (6.4-8.9) g/dL Albumin (3.2-5.2) g/dL Globulin (2-4) g/dL Albumin/Globulin Ratio (1-3) Beta HCG, Quant mIU/mL 11/06/17 11/06/17 Range/Units 15:29 15:29 WBC (3.5-10.8) 10^3/ul RBC (4.0-5.4) 10^6/ul Hgb (12.0-16.0) g/dl Hct (35-47) % MCV (80-97) fL MCH (27-31) pg MCHC (31-36) g/dl RDW (10.5-15) % Plt Count (150-450) 10^3/ul MPV (7.4-10.4) um3 Neut % (Auto) (38-83) % Lymph % (Auto) (25-47) % [place] % (Auto) (0-7) % Eos % (Auto) (0-6) % Baso % (Auto) (0-2) % Absolute Neuts (auto) (1.5-7.7) 10^3/ul Absolute Lymphs (auto) (1.0-4.8) 10^3/ul Absolute Monos (auto) (0-0.8) 10^3/ul Absolute Eos (auto) (0-0.6) 10^3/ul Absolute Basos (auto) (0-0.2) 10^3/ul Absolute Nucleated RBC 10^3/ul Nucleated RBC % INR (Anticoag Therapy) (0.77-1.02) APTT (26.0-36.3) seconds D-Dimer, Quantitative (Less Than 230) ng/mL Sodium 141 (139-145) mmol/L Potassium 3.9 (3.5-5.0) mmol/L Chloride 101 (101-111) mmol/L Carbon Dioxide 30 (22-32) mmol/L Anion Gap 10 (2-11) mmol/L BUN 16 (6-24) mg/dL Creatinine 0.68 (0.51-0.95) mg/dL Est GFR ( Amer) 116.4 (>60) Est GFR (Non-Af Amer) 90.5 (>60) BUN/Creatinine Ratio 23.5 H (8-20) Glucose 108 H (70-100) mg/dL Lactic Acid 2.2 H* (0.5-2.0) mmol/L Calcium 9.6 (8.6-10.3) mg/dL Total Bilirubin 0.40 (0.2-1.0) mg/dL AST 37 (13-39) U/L ALT 31 (7-52) U/L Alkaline Phosphatase 80 (34-104) U/L Troponin I 0.00 (<0.04) ng/mL B-Natriuretic Peptide ( - 100) pg/mL Total Protein 7.1 (6.4-8.9) g/dL Albumin 4.1 (3.2-5.2) g/dL Globulin 3.0 (2-4) g/dL Albumin/Globulin Ratio 1.4 (1-3) Beta HCG, Quant 2.48 mIU/mL Result Diagrams: 11/06/17 15:29 11/06/17 15:29 Lab Statement: Any lab studies that have been ordered have been reviewed, and results considered in the medical decision making process. - Radiology CXR Xray Interpretation: No Acute Changes Radiology Interpretation Completed By: Radiologist - Mild cardiomegaly. No acute cardiopulmonary process evident. ED physician has reviewed this report. - EKG 14:39 Cardiac Rate: NL EKG Rhythm: Sinus Rhythm - 77 BPM EKG Interpretation: No acute changes. Flipped T-waves in inferior leads Chest Pain Course/Dx - Course Course Of Treatment: The pt is a 52 y/o F presenting to the ED with c/o CP that began at 07:00 this morning. The pt states her CP radiated through to her back. - Chest Pain Differential Diagnosis/HQI/PQRI: Acute SC, ACS, Angina, Aortic Aneurysm, CHF, Chest Wall, Lower Respiratory Infection, Pulmonary Embolism - Diagnoses Provider Diagnoses: Chest pain, Ruled out for myocardial infarction - Provider Notifications Discussed Care Of Patient With: Junior Rodriguez Time Discussed With Above Provider: 16:01 Instructed by Provider To: Admit As Inpatient Discharge - Sign-Out/Discharge Documenting (check all that apply): Discharge/Admit/Transfer - Admit - Discharge Plan Condition: Stable Disposition: ADMITTED TO [facility] Referrals: Vineet Seth DO [Primary Care Provider] - - Billing Disposition and Condition Condition: STABLE [place] [place] The documentation as recorded by the Dennis garcia Stephanie accurately reflects the service I personally performed and the decisions made by Davis smith Emmanuel.
[2017-11-06] MEDS: Sucralfate TAB* 1 GM PO SCH (20:03)
--- NOTE | 2017-11-06 20:15 | HP ---
CC: Dr. Seth* HISTORY AND PHYSICAL: DATE OF ADMISSION: 11/06/17 PRIMARY CARE PROVIDER: Dr. Seth. ATTENDING PHYSICIAN WHILE IN THE HOSPITAL: Deyvi Rodriguez MD* (report dictated by Yovani Bruner NP) CHIEF COMPLAINT: Chest pain. HISTORY OF PRESENT ILLNESS: Mrs. Larson is a 52-year-old female patient. She has a history of thyroid nodule, hypertension, hyperlipidemia, chronic low back pain and a history of JACY. She comes in to our ER today stating that this morning she woke up. She was having gas pain last night after having some pot roast dinner. She woke up this morning though, about 15 minutes after being awoke she noted that she was having burning pain in her chest, mostly in the right substernal area. She tried drinking some baking soda in water, but it did not make it any better. It was persisting. She was concerned and went over to her primary's office. She was seen there. Blood pressure was in 180s systolically. They were concerned. She mentioned that she had been having chest burning, discomfort and she was sent to the hospital in an ambulance. She states the pain did not get worse with lying down or sitting upright. She denied having any abdominal pain. She states that she did feel nauseous. She did not get short of breath with this. She denied having any abdominal pain. No recent fevers, chills, or any vomiting associated with this. She did state that the discomfort just was not really getting any better, so she was concerned and was instructed to come in to the ER today to be further evaluated. She came in to the ED. She was evaluated. There was concern because of the chest pain, we were asked to evaluate for admission. She denies any recent fevers. No URI symptoms and again no abdominal discomfort. PAST MEDICAL HISTORY: Significant for: 1. Thyroid nodule. 2. Hypertension. 3. Hyperlipidemia. 4. Chronic low back pain. 5. JACY. PAST SURGICAL HISTORY: 1. The patient has had a cholecystectomy. 2. She has had breast reduction. 3. Right knee arthroscopy. 4. Tubal ligation. 5. She has had tarsal tunnel of the right foot. MEDICATIONS: Home medications include: 1. B vitamin 1 tablet daily. 2. Multivitamin 1 tablet daily. 3. Flonase 2 sprays both nares daily. 4. Vitamin D 5000 units p.o. daily. 5. Zocor 20 mg daily. 6. Vascepa 1 g p.o. b.i.d. 7. Chlorthalidone 25 mg daily. 8. Medrol Dosepak, she is taking this as directed for a rash which is gone now , she has 2 more days. 9. Tramadol 200 mg at bedtime. 10. Propranolol 10 mg p.o. b.i.d. 11. Prilosec 20 mg p.o. daily. ALLERGIES TO MEDICATIONS: Include CIPRO and CODEINE. FAMILY HISTORY: Mother had a history of angina. Father had a history of CAD, [place], hypertension, hyperlipidemia. SOCIAL HISTORY: She does not smoke, does not drink. Surrogate decision maker is her son. REVIEW OF SYSTEMS: There is no documented fever. She denies any significant weight change. There is no double vision. She denies having any ear discharge. There is no rhinorrhea. She denies having any sore throat. There is no thyroid enlargement. She did admit to chest pain per my HPI. There is no abdominal pain. There was nausea, but there is no vomiting. No dysuria. There was no frequency. There is no seizure. No loss of consciousness. No pruritus and no skin ulcerations. Review of 14 systems was completed, all others negative. PHYSICAL EXAMINATION GENERAL: At this time, Mrs. Larson is a 52-year-old female patient. She is morbidly obese. She is sitting in the ED stretcher. She does not appear to be in any acute distress. VITAL SIGNS: Blood pressure 144/85, pulse 80, respirations 22, O2 sat 95%, temperature 98.2. HEENT: Head: Atraumatic, normocephalic. Eyes: EOMs are intact. Sclerae anicteric and not pale. Throat: Oral mucosa appears to be moist. No oropharyngeal erythema. NECK: Supple. LUNGS: Clear to auscultation bilaterally. There were no wheezes, rales, or rhonchi. HEART: Sounds S1, S2. Regular rate and rhythm. No murmurs, rubs, or gallops. ABDOMEN: Soft. It was flat, nontender. Bowel sounds were present. EXTREMITIES: Pulses were 2+ throughout. She is moving all 4 extremities with 5 /5 strength. NEUROLOGIC: The patient is awake. She is alert. She is oriented x3. Tongue is midline. Project Construction Assistant Manager are equal. She had no gross focal deficits. SKIN: Grossly intact. LABORATORY DATA/DIAGNOSTIC STUDIES: Labs revealed a WBC of 11.9, RBC of 4.31, hemoglobin 14.4, hematocrit 41, platelet count of 274,000. INR 0.94. PTT 29.9. D- dimer less than 200. Sodium was 141, potassium of 3.9, chloride of 101, bicarb 30, BUN 16, creatinine 0.68, glucose 102. Lactate 2.2. Calcium 9.6. Total bili 0.4, AST 37, ALT 31, alk phos 80. Troponin 0.00. BNP of 20. Albumin of 4.1. Beta-hCG was negative. She did have a chest, abdomen, and pelvis CTA obtained today, which showed no evidence of aortic dissection is noted. There was a chest x-ray obtained today , which showed mild cardiomegaly. No acute cardiopulmonary process evident. There was an EKG obtained today showing a normal sinus rhythm, rate of 77. No ST elevations or T wave inversions are noted. When I review it to an EKG from 2 years ago, it appears to be similar. Old medical records were reviewed. ASSESSMENT AND PLAN: Mrs. Larson is a 52-year-old female patient coming in to the emergency department today with complaints of chest discomfort, burning, pain. We were asked to evaluate for admission. She will be admitted under observation status for: 1. Chest pain. At this point, again the story is atypical, but she does have concerning risk factors. The patient is having a burning discomfort. In the setting of a recent heavy meal last night, I question if this is acid reflux; however, I do think that we will cycle her troponins, get a stress test tomorrow. I do think though that in the outpatient setting, if the stress test is negative, then she should probably get further workup with GI and possible endoscopy. I have started her on Carafate. I am giving her GI cocktail to see if this helps her symptoms and we will place her on telemetry. Her CT was negative. 2. Thyroid nodules. Follow up with primary. 3. Hyperlipidemia. Continue statin therapy. 4. Hypertension. Continue meds as prescribed. 5. Chronic back pain. Continue meds as prescribed. 6. Recent rash. Again, the rash is now resolved of her lower extremities. We will give her 2 more doses of methylprednisolone. 7. Obstructive sleep apnea. I have ordered CPAP. 8. DVT prophylaxis. She will be placed on heparin subcu. 9. Code status. She is a full code. 10. Fluids, electrolytes, and nutrition. She can have a heart healthy diet. TIME SPENT: On admission was 60 minutes, greater than half the time spent face- to- face with the patient obtaining my history and physical; other half time spent going over the plan of care with the patient and implementing plan of care. I did discuss the plan of care with my attending, Dr. Rodriguez; he is in agreement. YOVANI BRUNER NP [id number]/[facility] #: [id number] [place]
[2017-11-06] MEDS ORDERED: NS 0.9% 1000 ML* 1,000 ML IV ONE (20:27)
[2017-11-06] MEDS: Propranolol TAB* 10 MG PO SCH (20:33)
[2017-11-06] MEDS: Heparin VIAL(*) 5000 UNITS/ML VIAL (FIVE THOUSAND) SUBCUT SCH (20:39)
[2017-11-06] MEDS ORDERED: Tramadol ER(NF) 200 MG TAB.ER PO SCH (21:00)
[2017-11-07] MEDS: traMADol TAB* 50 MG PO PRN ×2 (01:56→08:03)
[2017-11-07] MEDS ORDERED: Butalb/Acetamin/Caff TAB* 1 TAB PO PRN (03:32)
[2017-11-07] MEDS: Heparin VIAL(*) 5000 UNITS/ML VIAL (FIVE THOUSAND) SUBCUT SCH ×2 (04:53→14:02)
[2017-11-07 05:20] LABS: INR 0.97 (0.77-1.02)
[2017-11-07 05:21] LABS: ABS Basophils 0.1 10^3/ul (0-0.2); ABS Eosinophils 0.1 10^3/ul (0-0.6); ABS Lymphocytes 2.2 10^3/ul (1.0-4.8); ABS Monocytes 0.6 10^3/ul (0-0.8); ABS Neutrophils 7.1 10^3/ul (1.5-7.7); ABS Nucleated RBC 0 10^3/ul; Hematocrit 39 % (35-47); Hemoglobin 13.8 g/dl (12.0-16.0); Lymphocyte % 21.6 % (25-47); Mean Corpuscular HGB Conc 36 g/dl (31-36); Mean Corpuscular Hemoglobin 34 pg (27-31); Mean Corpuscular Volume 95 fL (80-97); Mean Platelet Volume 8.4 um3 (7.4-10.4); Nucleated Red Blood Cells % 0; Platelet Count 246 10^3/ul (150-450); Red Blood Count 4.07 10^6/ul (4.0-5.4); Red Cell Distribution Width 13 % (10.5-15)
[2017-11-07 05:25] LABS: EGFR Non-African American 115.6 (>60)
[2017-11-07] MEDS ORDERED: Omeprazole CAP* 20 MG PO SCH (07:30)
[2017-11-07] MEDS: Sucralfate TAB* 1 GM PO SCH ×2 (07:38→14:00)
[2017-11-07] MEDS ORDERED: methylPREDNISolone TAB* 4 MG PO SCH (09:00)
[2017-11-07] MEDS ORDERED: Aspirin EC TAB* 81 MG TAB.EC PO SCH (09:00)
[2017-11-07] MEDS ORDERED: Chlorthalidone TAB* 50 MG PO SCH (09:00)
[2017-11-07] MEDS ORDERED: Atorvastatin* 10 MG TAB PO SCH (09:00)
[2017-11-07] MEDS ORDERED: Regadenoson* 0.4 MG/5 ML SYRINGE ONE (12:08)
[2017-11-07] MEDS ORDERED: Aminophylline IV* 25 MG/ML 10 ML VIAL ONE (12:09)
--- NOTE | 2017-11-07 13:32 | PN ---
Subjective Date of Service: 11/07/17 Interval History: Ms. Larson denies complaint and is eager for discharge. Objective Active Medications: Acetaminophen (Tylenol Tab*) 650 mg PO Q4H PRN Acetaminophen/Butalbital/Caffeine (Fioricet Tab*) 1 tab PO Q6H PRN Aspirin (Aspirin Ec Tab*) 81 mg PO DAILY KATHLEEN Atorvastatin Calcium (Lipitor*) 10 mg PO DAILY KATHLEEN Chlorthalidone (Hygroton Tab*) 25 mg PO DAILY KATHLEEN Heparin Sodium (Porcine) (Heparin Vial(*)) 5,000 units SUBCUT Q8HR KATHLEEN Methylprednisolone (Medrol Tab*) 4 mg PO DAILY KATHLEEN Methylprednisolone (Medrol Tab*) 4 mg PO BID KATHLEEN Omeprazole (Prilosec Cap*) 20 mg PO DAILY@0730 KATHLEEN Ondansetron HCl (Zofran Inj*) 4 mg IV Q6H PRN Propranolol HCl (Inderal Tab*) 10 mg PO BID KATHLEEN Sucralfate (Carafate*) 1 gm PO AC KATHLEEN Tramadol HCl (Ultram*) 50 mg PO Q6H PRN Vital Signs: Temp Pulse Resp BP Pulse Ox 98.9 F 83 16 141/68 97 11/07/17 08:04 11/07/17 08:04 11/07/17 08:04 11/07/17 08:04 11/07/17 08:04 Oxygen Devices in Use Now: None Appearance: Female sitting up in bed in NAD Eyes: No Scleral Icterus Ears/Nose/Mouth/Throat: Mucous Membranes Moist Neck: Trachea Midline Respiratory: Symmetrical Chest Expansion and Respiratory Effort, Clear to Auscultation Cardiovascular: NL Sounds; No Murmurs; No JVD, No Edema Abdominal: NL Sounds; No Tenderness; No Distention Extremities: No Edema Skin: No Rash or Ulcers Neurological: Alert and Oriented x 3, NL Muscle Strength and Tone Nutrition: Taking PO's Result Diagrams: 11/07/17 04:58 11/07/17 04:58 Additional Lab and Data: Vital Signs: Temp Pulse Resp BP Pulse Ox 98.9 F 83 16 141/68 97 11/07/17 08:04 11/07/17 08:04 11/07/17 08:04 11/07/17 08:04 11/07/17 08:04 Assess/Plan/Problems-Billing Assessment: Ms. Larson is a 52 yo F with a PMH of HTN, HLD, JACY, and chronic back pain who was admitted on 11/06/17 with chest pain. - Patient Problems (1) Chest pain Comment: - Trops negative. EKG without ischemia. - Stress test low risk. (2) Hypertension Comment: - SBP 140s. - Continue chlorthalidone and propanolol. (3) Hyperlipidemia Comment: - Continue atorvastatin. (4) Back pain Comment: - Continue tramadol. (5) Rash Comment: - Complete medrol dose pack. (6) DVT prophylaxis Comment: - Heparin SQ. (7) Full code status Comment: Status and Disposition: OBV. Discharge to home.
--- NOTE | 2017-11-07 13:58 | RAD ---
HISTORY: Chest pain, shortness of breath, hypertension, hyperlipidemia, obesity COMPARISONS: None TECHNIQUE: A 1 day stress/rest myocardial perfusion study was performed, with pharmacologic stress. The stress portion was monitored by Dr. Emery. Gated SPECT imaging was performed, with CT-based attenuation correction DOSE: Stress: Technetium 99m tetrofosmin, 25.3 millicuries, injected at 12:42 PM on November 07, 2017 Rest: Technetium 99m tetrofosmin, 10.2 millicuries, injected at 9:35 AM on November 07, 2017 Pharmacologic agent: Lexiscan FINDINGS: CARDIAC MONITORING: No significant changes with stress EF: 66% TID: 1 MOTION: Normal motion, with normal wall thickening. PERFUSION: There is a small reversible defect of the lateral wall that resolves with attenuation correction. There is physiologic apical thinning. There is no other definite fixed or reversible perfusion defect. OTHER: None IMPRESSION: NO DEFINITE FIXED OR REVERSIBLE PERFUSION DEFECT. ASSESSMENT: LOW RISK. Based on imaging criteria from ACC/AHA 2002. Guideline Update for the Management of Patient's with Chronic Stable Angina, table 23. Noninvasive Risk Stratification. CPT II Codes: 4967H3C
[2017-11-07] MEDS: Propranolol TAB* 10 MG PO SCH (14:00)
[2017-11-07 15:59] VITALS: BP 141/66
--- NOTE | 2017-11-07 22:12 | DS ---
CC: Dr. Seth * [facility] DISCHARGE SUMMARY: DATE OF ADMISSION: 11/06/17 DATE OF DISCHARGE: 11/07/17 PRIMARY CARE PHYSICIAN: Dr. Seth. ATTENDING PHYSICIAN: Dr. Ayah Chawla * (dictation provided by Louise Navarro NP ). PRIMARY DIAGNOSIS: Chest pain. SECONDARY DIAGNOSES: 1. Thyroid nodule. 2. Hypertension. 3. Hyperlipidemia. 4. Chronic low back pain. 5. Obstructive sleep apnea. PAST SURGICAL HISTORY: 1. History of cholecystectomy. 2. Breast reduction. 3. Right knee arthroscopy. 4. Tubal ligation. 5. History of tarsal tunnel of the right foot. MEDICATIONS AT THE TIME OF DISCHARGE: Unchanged, are: 1. B vitamin 1 tab p.o. daily. 2. Multivitamin 1 tab p.o. daily. 3. Flonase 2 sprays both nares daily. 4. Vitamin D 5000 units p.o. daily. 5. Zocor 20 mg p.o. daily. 6. Vascepa 1 g p.o. b.i.d. 7. Chlorthalidone 25 mg p.o. daily. 8. Medrol Dosepak, completed for rash. 9. Tramadol 200 mg at bedtime. 10. Propranolol 10 mg p.o. b.i.d. 11. Prilosec 20 mg p.o. daily. HOSPITAL COURSE: Ms. Larson is a 52-year-old female with a past medical history as outlined above, who presented to the emergency room on 11/06/17 with concern for chest pain. Please see the dictated H and P from Yovain Bruner for complete details. In brief, the patient had labs that showed a troponin of 0.01. Her EKG showed no evidence of ischemia. She had a chest x-ray that showed "mild cardiomegaly, no acute cardiopulmonary process evident." She also went on for chest, abdomen, and pelvis CTA which was read as follows: "No evidence of aortic dissection is noted. There is a right adrenal mass unchanged from 05/17/17 although not typical of adenoma." Ms. Larson went on for a stress test today after completion of a second troponin, which was also negative. The stress test was read as low risk with no evidence of fixed reversible perfusion defect. Ms. Larson is doing well today. Her chest pain has resolved, it was atypical in nature and now has had a negative workup including troponins, EKG, and stress testing. She is medically stable for discharge to home to follow up with Dr. Seth as needed. DISPOSITION: To home. DIET: Heart healthy. ACTIVITY: As tolerated. FOLLOWUP PLANS: Please follow up with Dr. Seth in the next 3 to 5 days regarding this acute observation stay in the hospital. LOUISE NAVARRO NP [id number]/[facility] #: [id number] [place]
[2017-11-08] MEDS ORDERED: methylPREDNISolone TAB* 4 MG PO SCH (09:00)
== END 2017-11-07 17:23 | disposition home or self-care (01) ==
LOC: ED 14:27 → MEDTELE 17:24
PROVIDERS: ADMIT Internal Medicine; ATTEND Internal Medicine
DX: R07.9 Chest pain, unspecified (principal); I10 Essential (primary) hypertension; E04.1 Nontoxic single thyroid nodule; E78.5 Hyperlipidemia, unspecified; M54.5 Low back pain; G89.29 Other chronic pain; G47.33 Obstructive sleep apnea (adult) (pediatric); Z79.899 Other long term (current) drug therapy; Z88.1 Allergy status to other antibiotic agents; Z88.5 Allergy status to narcotic agent; R21 Rash and other nonspecific skin eruption; I51.7 Cardiomegaly; I44.4 Left anterior fascicular block
CPT/HCPCS: 36415; 71045; 71275; 74174; 78452; 80048; 80053; 80061; 83036; 83605; 83880; 84484; 84702; 85025; 85379; 85610; 85730; 93005; 93017; 96374; 96375; 99283; A9270-GY; A9502; G0378; J0280; J1644; J2270; J2405; J2785; J7509; Q9967